=== PATIENT | female | born 1980 | race Caucasian/White ===

== ENCOUNTER 2021-03-24 08:48 | Outpatient (REF) | payer OTHER, SELFPAY ==
[2021-03-24 11:30] LABS: Hematocrit 45.7 % (37.0-47.0); Hemoglobin 15.5 g/dl (12.0-16.0); Mean Corpuscular HGB Conc 33.9 g/dl (31.0-35.0); Mean Corpuscular Hemoglobin 31.8 pg (27.0-33.0); Mean Corpuscular Volume 93.8 fL (80.0-98.0); Mean Platelet Volume 9.5 fL (9.4-12.3); Platelet Count 285 X10*3/uL (160-400); Red Blood Count 4.87 X10*6/uL (4.20-5.50); Red Cell Distribution Width 12.4 % (11.0-16.0); White Blood Count 11.3 X10*3/uL (4.8-10.8)
[2021-03-24 12:07] LABS: Alanine Aminotransferase 27 U/L (0-31); Albumin Level 4.5 g/dL (3.5-5.0); Alkaline Phosphatase 56 U/L (39-117); Anion Gap 11 (12-20); Aspartate Amino Transferase 24 U/L (5-31); Bilirubin Total 0.4 mg/dL (0.0-1.0); Blood Urea Nitrogen 10 mg/dL (9-16); Calcium 9.5 mg/dL (8.4-10.2); Carbon Dioxide 26 mmol/L (22-29); Chloride 106 mmol/L (96-108); Cholesterol 235 mg/dL; Estimated Glomerular Filt Rate > 60; Glucose Fasting 91 mg/dL (60-99); HDL Cholesterol 44 mg/dL; LDL Cholesterol Calculated 165 mg/dl; Potassium 4.8 mmol/L (3.3-5.1); Sodium 138 mmol/L (135-145); Total Protein 7.2 g/dL (6.5-8.0); Triglycerides 131 mg/dL
== END 2021-03-24 08:49 | disposition home or self-care (01) ==
LOC: HO.WFDLDS 08:48
PROVIDERS: Hospitalist; Visit Provider Family Medicine
DX: Z00.01 Encounter for general adult medical examination with abnormal findings (principal); I10 Essential (primary) hypertension; Z13.220 Encounter for screening for lipoid disorders; Z13.29 Encounter for screening for other suspected endocrine disorder
CPT/HCPCS: 36415; 80053; 80061; 84443; 85027

== ENCOUNTER 2021-12-24 07:00 | Outpatient (RCR) | payer OTHER, SELFPAY ==
[2021-11-23 07:02] VITALS: BP 140/80; PULSE 90; O2SAT 98
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
== END 2021-12-29 09:29 | disposition home or self-care (01) ==
LOC: HO.PTWFD 07:00
PROVIDERS: PCP Hospitalist; Visit Provider Family Medicine
DX: M54.12 Radiculopathy, cervical region (principal)
CPT/HCPCS: 97012; 97110; 97140; 97161; 97530; 97535

== ENCOUNTER 2023-09-02 13:48 | Outpatient (AMB) | payer OTHER, SELFPAY ==
[2023-09-02 14:05] VITALS: BP 120/76; PULSE 86; TEMP 36.6; O2SAT 97; BMI 46.5
--- NOTE | 2023-09-02 14:05 | AM.OFFWIN_ITS ---
Intake Vital Signs 09/02/23 14:05 Height 5 ft 4 in Weight 271 lb BMI 46.5 BP 120/76 Blood Pressure Location Lt brachial Position Sitting Pulse 86 Pulse Source Pulse Oximeter Temp 97.9 F Temp Source Temporal Artery Scan Pulse Oximetry (%) 97 Oxygen Delivery Method Room Air Intake Visit Reasons: EP Numbness/tingling/shock pain - whole body Intake Note: pt is here today numbness tingling shock pain started 08/15 Patient Tobacco Use Status: Current everyday Tobacco user Allergies nickel Allergy (Mild, Verified 09/02/23 14:11) Rash powder on gloves Allergy (Mild, Uncoded 09/02/23 14:11) rash Medication List - Last Reconciled 09/02/23 by Riana Laurent, PATRICK acetaminophen (Tylenol Extra Strength) 1,000 mg PO Q6H PRN albuterol sulfate 90 mcg/actuation 2 puffs inhalation Q6H PRN baclofen 10 mg PO TID PRN diclofenac sodium 1% (Voltaren Arthritis Pain) 4 grams topical QID 30 days ibuprofen 800 mg PO TID lactobacillus combination no.8 (Adult Probiotic) 3,000 mmu cells PO DAILY multivitamin 1 tab PO DAILY norethindrone (contraceptive) (Incassia) 0.35 mg PO DAILY ondansetron HCl (Zofran) 4 mg PO Q6H PRN 1 month pseudoephedrine HCl ER (Sudafed 12 Hour) 120 mg PO Q12H sumatriptan succinate 50 mg PO Q2-4H tramadol 50 mg PO Q8H PRN 3 days Do you need a note to return to daycare/school/sports/work: No HPI HPI Comments History of Present Illness Details Patient is a 43-year-old female complaining of whole body numbness tingling and shock-like pain x5 days as well as a headache. She states that on August 15 she was positive for urinary tract infection was placed on cephalexin for 7 days. She stopped taking this medication 5 days ago and states her symptoms started shortly after this. She says she feels off balance but denies any room spinning feeling. She has shooting pain in her right shoulder from her neck. She denies any fevers, nausea vomiting or diarrhea. She states her urinary symptoms have also resolved. [facility] Social History Housing: House Patient Tobacco Use Status: Current everyday Tobacco user Tobacco use type: Cigarette Cigarettes Per Day: 10 e-Cigarette/Vaping Use: Currently Using service: No Current occupational status: employed Cognitive needs: No Hearing needs: No Vision needs: No Review of Systems Const All systems reviewed & are unremarkable except as noted in HPI and below Physical Exam Vital Signs: Last Vital Signs Temp 97.9 F 09/02/23 14:05 Pulse 86 09/02/23 14:05 BP 120/76 09/02/23 14:05 Pulse Ox 97 09/02/23 14:05 Oxygen Delivery Method Room Air 09/02/23 14:05 BMI result Body Mass Index 46.5 Const General: cooperative, healthy appearing, comfortable and no acute distress Nutritional Appearance: well nourished Orientation/consciousness: patient oriented x3 Limitations: no limitations HEENT Ears: external ears normal, TM normal on the left, mastoids normal, hearing grossly not impaired and TM abnormal (right side) dull, wth effusion, erythematous, with fluid behind the TM and with loss of landmarks Face and sinus: Yes normal facial exam, Yes sinuses nontender and Yes face symmetric Mouth: Normal oral and palatal mucosa present and oropharynx normal Teeth and gingiva: dentition normal Throat: Yes posterior oropharynx normal Neck Neck: Yes normal visual inspection, Yes full ROM, Yes trachea midline and Yes supple Resp Effort & Inspection: normal respiratory effort Skin General skin exam: no rashes or lesions noted Neuro General: patient oriented x3 Assessment & Plan Assessment & Plan (1) Otitis media of right ear: Code(s): H66.91 - Otitis media, unspecified, right ear Qualifiers: Chronicity: acute Otitis media type: suppurative Recurrence: non- recurrent Spontaneous tympanic membrane rupture: without spontaneous rupture Qualified Code(s): H66.001 - Acute suppurative otitis media without spontaneous rupture of ear drum, right ear Plan: Most of her symptoms can be explained by the infection of the right ear, advised I am not sure what is happening with her hip and shoulder but she should follow up with her primary care doctor if those symptoms do not resolve. Explained prednisone and associated side effects, patient states she has familiar with the medication as she has taken it before. as I can not send prescriptions to [facility] due to technical issues, my colleague is sending them for me. Plan See above Medications: New prednisone tapered dose, take 1 tablet PO bid x 2 days, followed by 1 tab po qd x 2 days, followed by 1/2 tab po qd x 2 days. 20 mg PO DAILY 8 tabs 0RF H66.001 - Acute suppurative otitis media without spontaneous rupture of ear drum, right ear amoxicillin-pot clavulanate 875-125 mg 1 tab PO BID 14 tabs 0RF 7 days H66.91 - Otitis media, unspecified, right ear Coding Level of Care Code Est Pt Level 3 (66612) Diagnoses Non-recurrent acute suppurative otitis media of right ear without spontaneous rupture of tympanic membrane H66.001 Chronicity: acute Otitis media type: suppurative Recurrence: non-recurrent Spontaneous tympanic membrane rupture: without spontaneous rupture
== END 2023-09-02 14:52 | disposition home or self-care (01) ==
PROVIDERS: PCP Family Medicine; Visit Provider Physician Assistant
DX: H66.001 Acute suppurative otitis media without spontaneous rupture of ear drum, right ear (principal)
CPT/HCPCS: 99213

== ENCOUNTER 2024-03-31 09:50 | Outpatient (AMB) | payer OTHER, SELFPAY ==
--- NOTE | 2024-03-31 13:07 | MHC.OFFWIV ---
Intake Intake Visit Reasons: EP injured LT side of ankle Intake Note: Patient here for left foot pain that has been present for about 1 week after loosing her balance on a step stool and stepped back on her heel. Patient Tobacco Use Status: Current everyday Tobacco user Allergies nickel Allergy (Mild, Verified 04/13/24 07:59) Rash powder on gloves Allergy (Mild, Uncoded 03/31/24 13:16) rash Do you need a note to return to daycare/school/sports/work: No HPI EP injured LT side of ankle HPI Details Patient is a 44-year-old female comes to the walk-in clinic complaining of persistent left foot pain, especially with ambulating, for the last week after loosing her balance on a step stool and stepping back on her heel. Plain film x-ray was done today, and she was informed that heel spurs were visible, and that it is possible that there was a fracture to the enthesophyte, and there was suspicious lucency to the talus on my wet read, however no distinct avulsion or osseous trauma noted. She does have pinpoint tenderness to the superior lateral aspect of her calcaneus, however her Achilles reflex is intact and no palpable deformity or injury to the tendon. There is a low chance of an occult fracture, and further imaging might be warranted. Symptoms are aggravated with weight-bearing and ambulating however, and almost completely resolved with wearing a walking boot, so this was her the treatment modality that I advised today as she could not tolerate complete nonweightbearing with crutches. 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 The Achilles itself is intact, with intact reflex. No deformity, mass or obvious tear or rupture apparent. Full range of motion and good strength to the ankle and foot. Neurovascularly intact distally Results Reviewed Results Reviewed: Enthesophytes noted, with no clear avulsion fracture. However there is a suspicious looking lucency to the posterior talus, on my wet read, which might require further imaging. Pending radiologist read Assessment & Plan Assessment & Plan (1) Foot sprain: Code(s): S93.609A - Unspecified sprain of unspecified foot, initial encounter Qualifiers: Encounter type: initial encounter Laterality: left Qualified Code(s): S93.602A - Unspecified sprain of left foot, initial encounter Plan Patient is a 44-year-old female comes to the walk-in clinic Patient was informed that heel spurs were visible on plain film x-ray, and that it is possible that there was a fracture to the enthesophyte, and there was suspicious lucency to the talus on my wet read, however no distinct avulsion or osseous trauma noted. She does have pinpoint tenderness to the superior lateral aspect of her calcaneus, however her Achilles reflex is intact and no palpable deformity or injury to the tendon. There is a low chance of an occult fracture, as the mechanism of injury was not substantial, however further imaging might be warranted. Symptoms are aggravated with weight-bearing and ambulating however, and almost completely resolved with wearing a walking boot, so this was her the treatment modality that I advised today as she could not tolerate complete nonweightbearing with crutches. She will be referred to ortho for further evaluation if symptoms are persisting, and might be considered for further imaging at that point. In the meantime, she was advised to limit weight-bearing, however she did not tolerate double crutches, and therefore she can use the walking boot if absolutely needed. Orders: Orders XR foot LT min 3V 03/31/24 M79.673 - Pain in unspecified foot Referrals Orthopedics Referral M25.572 - Pain in left ankle and joints of left foot Coding Level of Care Code Est Pt Level 3 (67676) Diagnoses Sprain of left foot, initial encounter S93.602A Encounter type: initial encounter Laterality: left
== END 2024-03-31 14:44 | disposition home or self-care (01) ==
PROVIDERS: PCP Family Medicine; Visit Provider Physician Assistant Medical
DX: S93.602A Unspecified sprain of left foot, initial encounter (principal)

== ENCOUNTER 2024-03-31 13:24 | Outpatient (REF) | payer OTHER, SELFPAY ==
--- NOTE | ~2024-03-31 | XR_ITS ---
CLINICAL HISTORY: M79.673 - Pain in unspecified foot Three views of the left foot. COMPARISON: None FINDINGS: No ankle joint effusion. Calcaneal enthesophyte present. Small osteophytes present along the dorsal aspect of the talus. Normal tarsometatarsal alignment. Mild degenerative changes of the 1st MTP joint small osteophytes. Tarsals, metatarsals and phalanges appear intact. IMPRESSION: 1. No radiographic evidence of acute injury to the left foot. 2. Calcaneal enthesophyte. 3. Mild degenerative changes of the left foot most pronounced of the 1st MTP joint. This document has been electronically signed by: Dmitriy Fowler MD on 03/31/2024 14:05:20
== END 2024-03-31 13:25 | disposition home or self-care (01) ==
LOC: HO.HMGCX 13:24
PROVIDERS: PCP Family Medicine; Visit Provider Physician Assistant Medical
DX: M79.672 Pain in left foot (principal); M77.32 Calcaneal spur, left foot
CPT/HCPCS: 73630; 99212

== ENCOUNTER → 2024-03-31 13:28 | Outpatient (BNV) | payer OTHER, SELFPAY | PROVIDERS: PCP Family Medicine; Visit Provider Radiology Diagnostic Radiology | DX: M77.32 Calcaneal spur, left foot (principal) | CPT/HCPCS: 73630 ==

== ENCOUNTER 2024-04-13 07:15 | Outpatient (REF) | payer OTHER, SELFPAY ==
--- NOTE | ~2024-04-13 | XR_ITS ---
EXAMINATION: XR FOOT 3 OR MORE VIEWS LEFT HISTORY: M79.673 - Pain in unspecified foot COMPARISON: Comparison is made with the prior examination dated 03/31/2024. FINDINGS: Three views of the left foot are submitted. Osseous mineralization is normal. There is no fracture or dislocation. There is minimal joint space narrowing involving the 1st MTP joint. Again seen is calcification at the insertion of the Achilles tendon. XR/XR foot LT min 3V IMPRESSION: Minimal joint space narrowing of the MTP joint of the great toe. Electronically signed by: Gavin Rowell MD 04/13/2024 12:29 PM [facility]
== END 2024-04-13 07:16 | disposition home or self-care (01) ==
LOC: HO.HOSX 07:15
PROVIDERS: Visit Provider Physician Assistant
DX: M79.672 Pain in left foot (principal); M77.30 Calcaneal spur, unspecified foot
CPT/HCPCS: 73630; 99202

== ENCOUNTER 2024-04-13 07:44 | Outpatient (AMB) | payer OTHER, SELFPAY ==
--- NOTE | 2024-04-13 07:53 | MHC.OFFVIS ---
Vital Signs 04/13/24 08:03 Height 5 ft 4 in Weight 278 lb BMI 47.7 Handedness Right Intake Visit Reasons: New Pt - left ankle pain Intake Note: Vida is a 44 year old female who presents today with a tall walking boot for a evaluation of her left ankle pain, DOI 03/20/24. Patient reports she fell onto her left heel from a step ladder, persistent pain with weight-bearing and ambulating. She finds that the boot is helping her, however it is not getting better. Patient mentions through out the day her pain gets worse and she feels some numbness and tingling since the injury. *Hasn't been working since 03/30/24* Allergies nickel Allergy (Mild, Verified 04/13/24 07:59) Rash powder on gloves Allergy (Mild, Uncoded 03/31/24 13:16) rash HPI HPI New Pt - left ankle pain: Details: Ms. Hatfield is a 44-year-old female who presents to the office today for evaluation of a left foot injury that she sustained on 03/19/24. She reports that she was stepping off of a step stool backwards and her foot got caught and essentially stutter stepped backwards. She felt immediate left heel pain but kept ambulating through the pain. Following the injury, the pain continued to intensify prompting her to present to he urgent care walk in. X-rays were obtained and the patient was placed in a tall walking boot and instructed to followup with orthopedics outpatient for further evaluation and treatment. 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 Tenderness to palpation at the Achilles tendon attachment at the calcaneous. Additionally, the osteophyte is also palpable. Achilles tendon is palpable and intact. Negative [place]. Able to dorsiflex and platarflex, pronate and supinate. Sensation intact. Pedal pulse intact. Assessment & Plan Assessment & Plan (1) Calcaneal spur: Code(s): M77.30 - Calcaneal spur, unspecified foot Category: Medical Plan Ms. Hatfield is a 44-year-old female who presents to the office today for evaluation of a left foot injury that she sustained on 03/19/24. She reports that she was stepping off of a step stool backwards and her foot got caught and essentially stutter stepped backwards. She felt immediate left heel pain but kept ambulating through the pain. Following the injury, the pain continued to intensify prompting her to present to he urgent care walk in. X-rays were obtained and the patient was placed in a tall walking boot and instructed to followup with orthopedics outpatient for further evaluation and treatment. While in the office today, I discussed that the patient that she should remain in the tall walking boot WBAT. I will place an order for an MRI to evaluate the Achilles tendon and surrounding structures. 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 She will followup with me after MRI is obtained, sooner if needed. X-rays obtained in the office today were reviewed by me, Cielo Barrett PA-C and are negative for any acute fracture or dislocation. Orders: Orders XR foot LT min 3V Today M79.673 - Pain in unspecified foot MR foot LT wo con Today M77.30 - Calcaneal spur, unspecified foot, S90.32XA - Contusion of left foot, initial encounter Coding Level of Care Code New Pt Level 4 (98200) Diagnoses Calcaneal spur M77.30
[2024-04-13 08:03] VITALS: BMI 47.7
== END 2024-04-13 08:31 | disposition home or self-care (01) ==
PROVIDERS: PCP Family Medicine; Visit Provider Physician Assistant
DX: M77.30 Calcaneal spur, unspecified foot (principal)
CPT/HCPCS: 99204

== ENCOUNTER 2024-04-15 20:18 | Outpatient (REF) | payer OTHER, SELFPAY ==
--- NOTE | ~2024-04-15 | MR_ITS ---
EXAMINATION: MR FOOT WITHOUT IV CONTRAST LEFT HISTORY: M77.30 - Calcaneal spur, unspecified foot. TECHNIQUE: Sagittal and axial STIR images of the left hindfoot, and sagittal T1, coronal STIR, and axial T1 and STIR images of the left forefoot were obtained. COMPARISON: Correlation is made to plain films of the left foot dated 04/13/2024. FINDINGS: There is fraying of the Achilles tendon at its insertion on the calcaneus with adjacent soft tissue edema, consistent with a small tear. The remainder of the Achilles tendon is intact. There is no tendon retraction. There is trace fluid in the retrocalcaneal bursa. An os trigonum is noted. There is minimal increased T2 marrow signal intensity and surrounding soft tissue edema/fluid which can be seen in the setting of os trigonum syndrome. There is no significant tibiotalar joint effusion. There is marrow edema involving the medial sesamoid of the great toe. Bone marrow signal intensity is otherwise normal. The visualized tendons and ligaments are otherwise intact. MR/MR foot LT wo con IMPRESSION: 1. Findings consistent with a small tear at the insertion of the Achilles tendon. 2. Minimal bone marrow edema involving an os trigonum with surrounding edema/fluid which can be seen in the setting of os trigonum syndrome. 3. Bone marrow edema involving the medial sesamoid of the great toe can be seen in the setting of sesamoiditis or osteoarthritis. Electronically signed by: Gavin Rowell MD 04/17/2024 10:28 AM ISACC
== END 2024-04-15 20:19 | disposition home or self-care (01) ==
LOC: HO.MRI 20:18
PROVIDERS: PCP Family Medicine; Visit Provider Physician Assistant
DX: S90.32XA Contusion of left foot, initial encounter (principal); M77.32 Calcaneal spur, left foot
CPT/HCPCS: 73718

== ENCOUNTER → 2024-04-15 20:37 | Outpatient (BNV) | payer OTHER, SELFPAY | PROVIDERS: PCP Family Medicine; Visit Provider Radiology Diagnostic Radiology | DX: M89.9 Disorder of bone, unspecified (principal) | CPT/HCPCS: 73718 ==

== ENCOUNTER 2024-04-24 15:46 | Outpatient (AMB) | payer OTHER, SELFPAY ==
--- NOTE | 2024-04-24 16:16 | MHC.PC.OV ---
Vital Signs 04/24/24 16:22 Height 5 ft 4 in Weight 285 lb 6 oz BMI 49.0 BP 110/60 Blood Pressure Location Rt brachial Position Sitting Respiration 16 Pulse 79 Pulse Source Pulse Oximeter Temp 98.6 F Temp Source Oral Pulse Oximetry (%) 96 Oxygen Delivery Method Room Air Intake Visit Reasons: Annual PE Intake Note: annual pe Is last menstrual period known: Yes Last menstrual period: 04/11/24 Post menopausal: No Patient : No Allergies nickel Allergy (Mild, Verified 04/24/24 16:18) Rash powder on gloves Allergy (Mild, Uncoded 03/31/24 13:16) rash Tobacco use date assessed: 04/24/24 Dental Screening Dental Screen Date: 04/24/24 Did you have a dental visit in the last 12 months?: No Did you have a dental problem in the last 6 months where you did not have access to dental care?: No HPI Annual PE HPI Details 44 y/o female presents for a CPE with f/u labs and health maintenance. No recent labs to review. Has not had her colonoscopy yet. Has complaints of abd. discomfort, diarrhea. She notes she hydrates herself well. She uses a fiber supplement that she notes is similar to metamucil. She notes some fatigue. 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 1. Little interest or pleasure in doing things: several days 2. Feeling down, depressed, or hopeless: several days 3. Trouble falling or staying asleep, or sleeping too much: several days 4. Feeling tired or having little energy: several days 5. Poor appetite or overeating: several days 6. Feeling bad about yourself - or that you are a failure or have let yourself or your family down: not at all 7. Trouble concentrating on things, such as reading the newspaper or watching television: several days 8. Moving or speaking so slowly that other people could have noticed. Or the opposite - being so fidgety or restless that you have been moving around a lot more than usual: several days 9. Thoughts that you would be better off or of hurting yourself in some way: not at all Total score: 7 Source: Developed by Drs. Gavin Hoskins, Beulah Dunn, Umang Mcarthur and colleagues, with an educational tony from [employer] Thrive Questionnaire Date Thrive assessed: 04/24/24 I am a: Patient What is your living situation today?: I have a steady place to live Within the past 12 months, did the food you bought not last and you didn't have the money to get more?: I choose not to answer this question Within the past 12 months, did you worry whether your food would run out before you got money to buy more?: I choose not to answer this question Do you have trouble paying for medicines?: No Do you have trouble getting transportation to medical appointments?: No Do you have trouble paying your heating and electricity bill?: No Do you have trouble taking care of your child, family member or friend?: No Do you have trouble with day-to-day activities such as bathing, preparing meals, shopping, managing finances, etc.?: No Are you currently unemployed and looking for a job?: No Are you interested in more education?: Yes Please select the resources that you would like help with: Education Currently or been in a relationship where the following occur: I choose not to answer THRIVE Score: 0 AUDIT C Alcohol Use Questionnaire (AUDIT-C) 1. How often do you have a drink containing alcohol?: Monthly or less 2. How many drinks containing alcohol do you have on a typical day when you are drinking?: 1 or 2 3. How often do you have six or more drinks on one occasion?: Never Total Score: 1 NATTY-7 AMB Questionnaire NATTY-7 Date NATTY - 7 assessed: 04/24/24 Feeling nervous, anxious, or on edge: 1 = Several days Not being able to stop or control worryin = Several days Worrying too much about different things: 1 = Several days Trouble relaxin = Several days Being so restless that it is hard to sit still: 1 = Several days Becoming easily annoyed or irritable: 1 = Several days Feeling afraid as if something awful might happen: 1 = Several days Total NATTY-7 score (0-4 normal; 5-9 mild; 10-14 moderate; 15-21 severe): 7 Source: Developed by Drs. Gavin Hoskins, Beulah Dunn, Umang Mcarthur and colleagues, with an educational tony from [employer] Review of Systems Const Denies chills, Denies fatigue, Denies fever(s), Denies headache(s) and Denies weakness Eyes Denies change in vision ENT Denies dizziness, Denies headache(s), Denies hearing loss, Denies nasal congestion, Denies sinus pain, Denies sinus pressure and Denies sore throat Card Denies chest pain, Denies lightheadedness, Denies dyspnea and Denies other (palpitations) Resp Denies cough, Denies dyspnea and Denies wheezing GI Denies abdominal pain, Denies melena, Denies hematochezia, Denies change in bowel habits, Denies dyspepsia, Reports diarrhea and Denies nausea Denies hematuria and Denies dysuria Musc Denies abnormal gait, Denies myalgias, Denies arthralgias, Denies numbness and Denies tingling Skin/Breast Denies rash, Denies unusual bruising and Denies wounds Neuro Denies abnormal gait, Denies dizziness, Denies headache(s), Denies memory loss, Denies numbness, Denies Sensory deficit (Neuro), Denies tingling and Denies weakness Psych Denies anxiety, Denies depression and Denies memory loss Endo Denies cold intolerance, Denies fatigue, Denies heat intolerance, Denies polydipsia and Denies polyuria Gianni/Lymph Denies easy bleeding and Denies easy bruising Aller/Immun Denies wheezing Physical exam (Primary Care) Vital Signs: Last Vital Signs Temp 98.6 F 04/24/24 16:22 Pulse 79 04/24/24 16:22 Resp 16 04/24/24 16:22 BP 110/60 04/24/24 16:22 Pulse Ox 96 04/24/24 16:22 Oxygen Delivery Method Room Air 04/24/24 16:22 BMI result Body Mass Index 49.0 Tobacco/Smoking Status: Tobacco use Status Tobacco use date assessed 04/24/24 04/24/24 16:27 Patient Tobacco Use Status Current everyday Tobacco 04/24/24 16:27 Tobacco use type Cigarette 04/24/24 16:27 e-Cigarette/Vaping Use Currently Using 04/24/24 16:27 PHQ-9: PHQ-9 Score PHQ-9: Total score 7 04/24/24 16:27 Thrive Assessment: Date of Thrive Assessment Date Thrive assessed 04/24/24 04/24/24 16:27 Currently or been in a relationship where the following occur: I choose not to answer Const General: no acute distress, well developed, alert and awake Nutritional Appearance: well nourished Orientation/consciousness: patient oriented x3 HENMT Head: Yes normocephalic and Yes atraumatic Ears: hearing grossly normal bilaterally and TM's normal bilaterally General nose exam: Normal external nose present and Normal nares present Mouth: Normal oral and palatal mucosa present and moist mucous membranes Teeth and gingiva: dentition normal Throat: Yes posterior oropharynx normal Eyes General: appearance normal, both eyes and all related structures Pupils: Equal, round and reactive pupils present and Pupil accommodation reflex normal EOM: EOMs intact bilaterally Neck Neck: Yes normal visual inspection, Yes no lymphadenopathy and Yes trachea midline Thyroid: Thyroid normal Carotids: no bruits Lymphatic: no lymphadenopathy noted Chest Chest palpation & inspection: normal inspection of the chest Resp Effort & Inspection: normal respiratory effort Auscultation: clear to auscultation bilaterally Cardio Rate: regular rate Rhythm: regular rhythm Heart sounds: S1 normal heart sound present, S2 normal heart sound present, no gallops, no murmurs and no rubs Bruits: no abdominal aortic bruits and no carotid bruits GI Palpation (GI): No Abdominal aortic bruit present, Soft to palpation, nontender, No hepatosplenomegaly present and No Rebound tenderness present Auscultation: normal bowel sounds General: Yes no CVA tenderness Back/Spine/Pelvis Back: no CVA tenderness Cervical Spine: cervical ROM normal and No Cervical spine tenderness Thoracic/Lumbar Spine: thoraco-lumbar ROM normal, No pain with thoraco-lumbar ROM, No thoracic spinal tenderness and No lumbar spinal tenderness Skin Lesions: no lesions Rashes: no rashes Trauma: no lacerations or abrasions Wounds: no wounds Nails: normal Neuro General: patient oriented x3 Cranial nerves: Yes Equal, round and reactive pupils present Cognition (Neuro): normal cognition Gait exam (Neuro): Normal gait present Motor exam (neuro): 5/5 motor strength present throughout Sensory Exam: No Sensory deficit (Neuro) Deep tendon reflexes (DTR's): Right patellar reflex intensity grade: 2+ and Left patellar reflex intensity grade: 2+ Extrem General: Yes normal to inspection and No edema Psych Appearance: grossly normal Affect: normal affect Attitude: cooperative Thought process: Normal thought process present Coding Level of Care Code Est Pt Level 3 (95483) Est Pt Prev Care 40-64y(78956) Diagnoses Adult general medical exam Z00.00 Diarrhea R19.7 Fatigue R53.83 Screening for colon cancer Z12.11 Breast cancer screening by mammogram Z12.31 Screening for cervical cancer Z12.4 Assessment & Plan Assessment & Plan (1) Adult general medical exam: Code(s): Z00.00 - Encounter for general adult medical examination without abnormal findings Category: Medical Plan: 44-year-old?female?presents?for?complete?physical?exam Encouraged?healthy?diet?with?active?lifestyle?and?plenty?of?exercise (2) Diarrhea: Code(s): R19.7 - Diarrhea, unspecified Category: Medical Plan: Patient?has?diarrhea?alternating With?some?constipation Of?note,?she?has?been?taking?iron?supplements?as?she?has?been?concerned?that?she?may?be?anemic Will?look?in?to?her?H&H?as?well?as?iron?levels?to?see?if?this?is?needed - otherwise?can?discontinue Hydrate?well Consider?a?soluble?fiber?tablet She?will?let?me?know?if?still?not?improving. (3) Fatigue: Code(s): R53.83 - Other fatigue Category: Medical Plan: As?above,?check?CBC?as?well?as?iron?levels Check?thyroid?level Will?follow-up?in?next?encounter (4) Screening for colon cancer: Code(s): Z12.11 - Encounter for screening for malignant neoplasm of colon Category: Medical Plan: Patient?is?44?and?due?for?1st?screening?colonoscopy Referred?to?GI (5) Breast cancer screening by mammogram: Code(s): Z12.31 - Encounter for screening mammogram for malignant neoplasm of breast Category: Medical Plan: Due?for?mammogram Ordered (6) Screening for cervical cancer: Code(s): Z12.4 - Encounter for screening for malignant neoplasm of cervix Category: Medical Plan: Due?for Pap?smear 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 Panel Fast Today Z00.00 - Encounter for general adult medical examination without abnormal findings LDL Cholesterol Direct Today E78.5 - Hyperlipidemia, unspecified Lipid Panel Today Z00.00 - Encounter for general adult medical examination without abnormal findings TSH reflex Free T4 Today Z00.00 - Encounter for general adult medical examination without abnormal findings UA and rflx microscopic Today Z00.00 - Encounter for general adult medical examination without abnormal findings MM tomosynthesis screening BI Today Z12.31 - Encounter for screening mammogram for malignant neoplasm of breast IRON PROFILE Today R53.83 - Other fatigue Referrals Gastroenterology Referral Z12.11 - Encounter for screening for malignant neoplasm of colon BASKET OPERATOR Referral Z12.4 - Encounter for screening for malignant neoplasm of cervix
[2024-04-24 16:22] VITALS: BP 110/60; PULSE 79; RESP 16; TEMP 37; O2SAT 96; BMI 49.0
--- OUTSIDE RECORDS SUMMARY | 2024-04-24 16:30 | XMS_ITS | Clinical Summary ---
Author Organization [facility] ity Address [address] [place] [address] Care Team Providers Care [employer] Advisor Name Role Phone Unavailable Primary Care Provider Unavailabl e Surgical History Surgery Date Site/Laterality Comments OTHER SURGICAL HISTORY PROCEDURE: DENIES PREVIOUS SURGERY Medical History Medical History Date Comments Tobacco use disorder 03/20/2006 DX:Tobacco use disorder Family History Medical History Relation Name Comments Alcohol abuse Father Other: substance abuse Mother Blindness Neg Hx Cataracts Neg Hx Glaucoma Neg Hx Macular degeneration Neg Hx Strabismus Neg Hx Relation Name Status Comments Father Mother Social History Tobacco Use Types Packs/Day Years Used Date Smoking Tobacco: Every Day Cigarettes Alcohol Use Standard Drinks/Week Comments Yes 0 (1 standard drink = 0.6 oz pur e alcohol) Sex and Gender Information Value Date Recorded Sex Assigned at Not on file Gender Identity Not on file Sexual Orientation Not on file Obstetrics History Plan of Treatment Health Maintenance Due Date Last Done Comments Breast Cancer Screening 1979 DTaP,Tdap,and Td Vaccines (1 - Tdap) 1998 Hepatitis B Vaccines (1 of 3 - 19+ 3-dose series) 1998 Cervical Cancer Screening: P ap Smear 01/15/2000 COVID-19 Vaccine ( - 2023-2 5 season) 2023 Influenza Vaccine (#1) 2023 HIB Vaccines Aged Out No longer eligi ble based on patient's age to complete this topic HPV Vaccines Aged Out No longer eligi ble based on patient's age to complete this topic Hepatitis A Vaccines Aged Out No long er eligible based on patient's age to complete this topic IPV Vaccines Aged Out No longer eligi ble based on patient's age to complete this topic MMR Vaccines Aged Out No longer eligi ble based on patient's age to complete this topic Meningococcal ACWY Vaccine Aged Out N o longer eligible based on patient's age to complete this topic Pneumococcal Vaccine: Pediat rics (0 to 5 Years) and At-Risk Patients (6 to 64 Years) Aged Out No longer eligible b ased on patient's age to complete this topic RSV Immunization Patients Un kayla 20 months Aged Out No longer eligible b ased on patient's age to complete this topic Varicella Vaccines Aged Out No longer eligible based on patient's age to complete this topic
--- OUTSIDE RECORDS SUMMARY | 2024-04-24 16:30 | XMS_ITS | Patient Health Record ---
Author Organization [facility] Address [facility] [id number] Support Name Relationship Address Phone Unavailable Emergency Contact Unknown Vida Hatfield Guarantor Unknown Unavailable Reason For Referral No Information Problems Problem Type SNOMED Code ICD Code Onset Dates Problem Status W/U Status Risk Notes Problem Mixed hyperlipidemia (996151454) Mixed hyperlipidemia (272.2) Active confirmed (NISH) Problem Tobacco user (451427257) Nondependent tobacco use disorder (305.1) Active confirmed (NISH) Plan Of Treatment No Information Medical (General) History Surgical History Surgery Date(Month/Year) no surgical history : 10/25/2013 - ;
== END 2024-04-24 17:05 | disposition home or self-care (01) ==
PROVIDERS: PCP Family Medicine; Visit Provider Family Medicine
DX: Z00.00 Encounter for general adult medical examination without abnormal findings (principal); R19.7 Diarrhea, unspecified; R53.83 Other fatigue; Z12.11 Encounter for screening for malignant neoplasm of colon; Z12.31 Encounter for screening mammogram for malignant neoplasm of breast

== ENCOUNTER → 2024-04-24 15:46 | Outpatient (BNVA) | payer OTHER, SELFPAY | PROVIDERS: PCP Family Medicine; Visit Provider Family Medicine | DX: Z00.00 Encounter for general adult medical examination without abnormal findings (principal); R19.7 Diarrhea, unspecified; R53.83 Other fatigue; F17.210 Nicotine dependence, cigarettes, uncomplicated; Z12.4 Encounter for screening for malignant neoplasm of cervix | CPT/HCPCS: 99212; 99396 ==

== ENCOUNTER 2024-04-27 09:58 | Outpatient (REF) | payer OTHER, SELFPAY ==
--- OUTSIDE RECORDS SUMMARY | 2024-04-27 10:40 | XMS_ITS | Clinical Summary ---
Author Organization [facility] ity Address [address] [place] [address] Care Team Providers Care Sewer Hand Name Role Phone Unavailable Primary Care Provider [...]
[2024-04-27 11:47] LABS: Appearance Urine Clear; Color Urine Yellow; Glucose Urine UA Negative (Negative); Leukocyte Esterase Urine Negative (Negative); Nitrite Urine Negative (Negative); PH 6.5 (5.0-9.0); Specific Gravity - Urine 1.015 (1.005-1.025); UMIC TRIGGER UA YES; Urine Blood Small (1+) (Negative); Urine Ketones Negative (Negative); Urine Protein Negative (Neg-Trace)
[2024-04-27 11:53] LABS: Bacteria Urine None Seen (None Seen); Hyaline Casts Urine 0-2 /LPF (0-2); WBC Urine 0-5 /HPF (0-5)
[2024-04-27 12:20] LABS: MANUAL DIFF FLAG NO
[2024-04-27 12:28] LABS: Creatinine Urine 65.12 mg/dL; Microalbumin Urine < 5.0 mg/L
[2024-04-27 12:35] LABS: Basophils Absolute Auto 0.1 X10*3/uL (0.0-0.2); Basophils Percent Auto 0.8 % (0-2); Eosinophils Absolute Auto 0.1 X10*3/uL (0.0-0.4); Hematocrit 44.9 % (37.0-47.0); Hemoglobin 15.3 g/dl (12.0-16.0); Imm Gran Abs Auto 0.02 X10*3/uL (0.00-0.03); Imm Gran Pct Auto 0.3 % (0.0-0.4); Lymphocytes Absolute Auto 3.1 X10*3/uL (1.2-4.9); Lymphocytes Percent Auto 38.4 % (20-40); Mean Corpuscular HGB Conc 34.1 g/dl (31.0-35.0); Mean Corpuscular Hemoglobin 30.6 pg (27.0-33.0); Mean Corpuscular Volume 89.8 fL (80.0-98.0); Mean Platelet Volume 9.8 fL (9.4-12.3); Monocytes Absolute Auto 0.7 X10*3/uL (0.1-1.2); Monocytes Percent Auto 8.4 % (2-11); Neutrophils Absolute Auto 4.1 x10*3/uL (2.0-8.3); Neutrophils Percent Auto 51.1 % (45-73); Platelet Count 295 X10*3/uL (160-400); Red Cell Distribution Width 12.3 % (11.0-16.0)
[2024-04-27 13:08] LABS: Alanine Aminotransferase 31 U/L (0-31); Albumin Level 4.3 g/dL (3.5-5.0); Alkaline Phosphatase 59 U/L (39-117); Anion Gap 11 (12-20); Aspartate Amino Transferase 34 U/L (5-31); Bilirubin Total 0.5 mg/dL (0.0-1.0); Blood Urea Nitrogen 13 mg/dL (9-16); Calcium 9.4 mg/dL (8.4-10.2); Carbon Dioxide 23 mmol/L (22-29); Chloride 108 mmol/L (96-108); Cholesterol 240 mg/dL (<200); Estimated Glomerular Filt Rate > 60; Glucose Fasting 89 mg/dL (60-99); HDL Cholesterol 42 mg/dL (>40); Iron 131 mcg/dL (30-160); LDL Cholesterol Calculated 164 mg/dL (<100); Percent Iron Saturation 43 % (15-50); Potassium 4.4 mmol/L (3.3-5.1); Sodium 138 mmol/L (135-145); Total Iron Binding Capacity 305 mcg/dL (228-428); Total Protein 7.5 g/dL (6.5-8.0); Triglycerides 171 mg/dL (<150); Unsaturated Iron Binding 174 ug/dL
[2024-04-27 13:33] LABS: TSH reflex Free T4 1.04 uIU/mL (0.32-4.0)
[2024-04-29 03:19] LABS: LDL Cholesterol Direct 186 mg/dL (<100)
== END 2024-04-27 09:59 | disposition home or self-care (01) ==
LOC: HO.WFDLDS 09:58
PROVIDERS: Visit Provider Family Medicine
DX: Z00.00 Encounter for general adult medical examination without abnormal findings (principal); E78.5 Hyperlipidemia, unspecified; R53.83 Other fatigue; I10 Essential (primary) hypertension
CPT/HCPCS: 36415; 80053; 80061; 81001; 82043; 82570; 83540; 83721; 84443; 85025

== ENCOUNTER 2024-05-17 12:47 | Outpatient (AMB) | payer OTHER, SELFPAY ==
--- NOTE | 2024-05-17 12:58 | MHC.OFFVIS ---
Intake Visit Reasons: OV - left ankle MRI review Intake Note: Vida is a 44 year old female who presents today for a MRI review of her left ankle. MRI done 04/15/24. Patient states she started PT and has attended 3 sessions. She has concerns of tenderness at her heel. She continues to wear walking boot as instructed. Allergies nickel Allergy (Mild, Verified 05/17/24 13:04) Rash powder on gloves Allergy (Mild, Uncoded 05/17/24 13:04) rash HPI HPI OV - left ankle MRI review: Details: Ms. Jordan is a 44-year-old female who presents to the office today for routine follow-up of a left ankle injury. The patient was called over the phone with the MRI results prior to this appointment. Patient has been attending physical therapy and wearing the boot as instructed. 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 No tenderness to palpation at the Achilles tendon attachment at the calcaneous. Additionally, the osteophyte is also palpable over the posterior aspect of the calcaneus. Achilles tendon is palpable and intact. Negative [place]. Able to dorsiflex and platarflex, pronate and supinate. Sensation intact. Pedal pulse intact. Assessment & Plan Assessment & Plan (1) Partial rupture of left Achilles tendon: Code(s): S86.012A - Strain of left Achilles tendon, initial encounter Category: Medical (2) Calcaneal spur: Code(s): M77.30 - Calcaneal spur, unspecified foot Category: Medical Plan Ms. Jordan is a 44-year-old female who presents to the office today for routine follow-up of a left ankle injury. The patient was called over the phone with the MRI results prior to this appointment. Patient has been attending physical therapy and wearing the boot as instructed. While in the office today, we discussed discontinuing the tall boot and transitioning to a supportive walking shoe. Patient will continue attending physical therapy. She will remain out of work until her follow-up. I would like to see her in 6 weeks, sooner if needed. MRI foot LT wo con IMPRESSION: 1. Findings consistent with a small tear at the insertion of the Achilles tendon. 2. Minimal bone marrow edema involving an os trigonum with surrounding edema/fluid which can be seen in the setting of os trigonum syndrome. 3. Bone marrow edema involving the medial sesamoid of the great toe can be seen in the setting of sesamoiditis or osteoarthritis. Coding Level of Care Code Est Pt Level 3 (77000) Diagnoses Partial rupture of left Achilles tendon S86.012A Calcaneal spur M77.30
--- OUTSIDE RECORDS SUMMARY | 2024-05-17 13:40 | XMS_ITS | Clinical Summary ---
Author Organization [facility] ity Address [address] [place] [address] Care Team Providers Care Field Coil Winder Name Role Phone Unavailable Primary Care Provider [...] drink = 0.6 oz pur e alcohol) Comments Unknown Sex and Gender Information Value Date Recorded Sex Assigned at Not on file Legal Sex Female 11:05 PM EST Gender Identity Not on file Sexual Orientation Not on file Obstetrics History Plan of Treatment Health Maintenance Due Date Last Done Comments Breast Cancer Screening 1979 DTaP,Tdap,and Td Vaccines (1 - Tdap) 1998 Hepatitis B Vaccines (1 of 3 - 19+ 3-dose series) 1998 Cervical Cancer Screening: P ap Smear 01/15/2000 COVID-19 Vaccine (2023-2 5 season) 2023 Influenza Vaccine (#1) 2023 [...] patient's age to complete this topic Meningococcal B Vacine Aged Out No lo nger eligible based on patient's age to complete [...]
--- OUTSIDE RECORDS SUMMARY | 2024-05-17 13:40 | XMS_ITS | Patient Health Record ---
Author Organization [facility] Address [facility] [phone] Support Name Relationship Address Phone Unavailable Emergency Contact Unknown Vida Hatfield Guarantor Unknown Unavailable Reason For Referral No Information Problems Problem Type SNOMED Code ICD Code Onset Dates Problem Status W/U Status Risk Notes Problem Mixed hyperlipidemia (451928672) Mixed hyperlipidemia (272.2) Active confirmed (NISH) Problem Tobacco user (900102478) Nondependent tobacco use disorder (305.1) Active confirmed (NISH) Plan Of Treatment No Information Medical (General) History Surgical History Surgery Date(Month/Year) no surgical history : 10/25/2013 - ;
== END 2024-05-17 13:38 | disposition home or self-care (01) ==
PROVIDERS: PCP Family Medicine; Visit Provider Physician Assistant
DX: S86.012D Strain of left Achilles tendon, subsequent encounter (principal); M77.30 Calcaneal spur, unspecified foot
CPT/HCPCS: 99213

== ENCOUNTER → 2024-05-17 12:47 | Outpatient (BNVA) | payer OTHER, SELFPAY | PROVIDERS: PCP Family Medicine; Visit Provider Physician Assistant | DX: S86.012D Strain of left Achilles tendon, subsequent encounter (principal); M77.30 Calcaneal spur, unspecified foot | CPT/HCPCS: 99212 ==

== ENCOUNTER 2024-05-24 11:36 | Outpatient (AMB) | payer OTHER, SELFPAY ==
--- NOTE | 2024-05-24 11:33 | MHC.PC.OV ---
Intake Visit Reasons: f/u CPE-labs via telemedicine Allergies nickel Allergy (Mild, Verified 05/24/24 11:33) Rash powder on gloves Allergy (Mild, Uncoded 05/17/24 13:04) rash Medication List - Last Reconciled 05/24/24 by Josias Webber MD acetaminophen (Tylenol Extra Strength) 1,000 mg PO Q6H PRN albuterol sulfate 90 mcg/actuation 2 puffs inhalation Q6H PRN atorvastatin 20 mg PO BEDTIME 90 days bupropion HCl XL (Wellbutrin XL) 150 mg PO QAM diclofenac sodium 1% (Voltaren Arthritis Pain) 4 grams topical QID 30 days ibuprofen 800 mg PO TID lactobacillus combination no.8 (Adult Probiotic) 3,000 mmu cells PO DAILY multivitamin 1 tab PO DAILY ondansetron HCl (Zofran) 4 mg PO Q6H PRN 1 month sumatriptan succinate 50 mg PO Q2-4H Tobacco use date assessed: 04/24/24 Dental Screening Dental Screen Date: 04/24/24 HPI f/u CPE-labs via telemedicine HPI Details 44 y/o female presents to f/u CPE-labs via telemedicine. Labs drawn 04/27/24. Reviewed labs with pt. Elevated AST of 34. Triglycerides 171. TC 240. LDL direct 186. HDL 42. Some urine RBC seen. Pt notes this is chronic though she is unsure why. HPI Comments History of Present Illness Details Documentation assistance for Josias Webber MD, was provided by Marlon Malloy,? Rotary Engraver on 05/24/2024 at 2:30 PM EST. I, Dr. Webber, have read, observed, and verified documentation. ?? 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 Gavin Hoskins, Beulah Dunn, Umang Mcarthur and colleagues, with an educational tony from [employer]. Review of Systems Const Denies chills, Denies fatigue, Denies fever(s), Denies headache(s) and Denies weakness ENT Denies dizziness and Denies headache(s) Card Denies dyspnea Resp Denies cough, Denies dyspnea, Denies wheezing and Denies other (shortness of breath) Musc Denies numbness and Denies tingling Neuro Denies dizziness, Denies headache(s), Denies numbness, Denies tingling and Denies weakness Psych Denies anxiety and Denies depression Endo Denies fatigue Aller/Immun Denies wheezing Physical exam (Primary Care) Tobacco/Smoking Status: Tobacco use Status Tobacco use date assessed 04/24/24 05/24/24 11:35 Patient Tobacco Use Status Current everyday Tobacco 05/24/24 11:35 Tobacco use type Cigarette 05/24/24 11:35 e-Cigarette/Vaping Use Currently Using 05/24/24 11:35 Thrive Assessment: Date of Thrive Assessment Date Thrive assessed 04/23/24 05/24/24 11:35 Telehealth Telehealth Telehealth Platform: Telephone Location of provider rendering services: practice address Location of patient: address on file Patient Identification confirmed using: Name, : Yes Telehealth method: voice only Patient verbally consented to treatment: Yes Patient verbally consented to billing insurance company: Yes Patient informed of any privacy concerns related to visit: Yes Minutes spent on Phone/Video with Pt.: 20 Coding Level of Care Code Tele Est Pt Level 3 (95100) Diagnoses Elevated AST (SGOT) R74.01 Hypercholesterolemia E78.00 Hematuria R31.9 Assessment & Plan Assessment & Plan (1) Elevated AST (SGOT): Code(s): R74.01 - Elevation of levels of liver transaminase levels Category: Medical Plan: Mildly?elevated?AST Will?have?patient?hydrate?well?and?work?at?weight?loss Will?recheck?in?a?few?months (2) Hypercholesterolemia: Code(s): E78.00 - Pure hypercholesterolemia, unspecified Category: Medical Plan: LDL?cholesterol?is?too?high.??Goal?is?less?than?100 Work?on?diet?lower?in?saturated?fats?and?cholesterol Start?atorvastatin Work?on?weight?loss?and?exercise (3) Hematuria: Code(s): R31.9 - Hematuria, unspecified Category: Medical Plan: Patient?has?mild?microscopic?hematuria?and?notes?that?she?has?had?this?many?times?before No?significant?workup Will?recheck?this?and?if?if?persists,?will?work?further Orders: Orders Comprehensive [place]. Panel Fast Today R74.01 - Elevation of levels of liver transaminase levels, Z00.00 - Encounter for general adult medical examination without abnormal findings UA and rflx microscopic Today R31.9 - Hematuria, unspecified, Z00.00 - Encounter for general adult medical examination without abnormal findings Lipid Panel Today E78.00 - Pure hypercholesterolemia, unspecified, Z00.00 - Encounter for general adult medical examination without abnormal findings Medications: New atorvastatin 20 mg PO BEDTIME 90 days 90 tabs 2RF
--- OUTSIDE RECORDS SUMMARY | 2024-05-24 14:07 | XMS_ITS | Clinical Summary ---
Author Organization [facility] ity Address [address] [place] [address] Care Team Providers Care Workers' Compensation Magistrate Name Role Phone Unavailable Primary Care Provider [...]
--- OUTSIDE RECORDS SUMMARY | 2024-05-24 14:07 | XMS_ITS | Patient Health Record ---
Author Organization [facility] Address [facility] [phone] Support Name Relationship Address Phone Unavailable Emergency Contact Unknown Vida Hatfield Guarantor Unknown Unavailable Reason For Referral No Information Problems Problem Type SNOMED Code ICD Code Onset Dates Problem Status W/U Status Risk Notes Problem Mixed hyperlipidemia (524119310) Mixed hyperlipidemia (272.2) Active confirmed (NISH) Problem Tobacco user (360205957) Nondependent tobacco use disorder (305.1) Active confirmed (NISH) Plan Of Treatment No Information Medical (General) History Surgical History Surgery Date(Month/Year) no surgical history : 10/25/2013 - ;
== END 2024-05-24 17:05 | disposition home or self-care (01) ==
LOC: HO.HMCFM 11:36
PROVIDERS: PCP Family Medicine; Visit Provider Family Medicine
DX: R74.01 Elevation of levels of liver transaminase levels (principal); E78.00 Pure hypercholesterolemia, unspecified; R31.9 Hematuria, unspecified

== ENCOUNTER 2024-06-01 13:23 | Outpatient (REF) | payer OTHER, SELFPAY ==
--- OUTSIDE RECORDS SUMMARY | 2024-06-01 15:02 | XMS_ITS | Patient Health Record ---
Author Organization [facility] Address [facility] [phone] Support Name Relationship Address Phone Unavailable Emergency Contact Unknown Vida Hatfield Guarantor Unknown Unavailable Reason For Referral No Information Problems Problem Type SNOMED Code ICD Code Onset Dates Problem Status W/U Status Risk Notes Problem Mixed hyperlipidemia (034474102) Mixed hyperlipidemia (272.2) Active confirmed (NISH) Problem Tobacco user (906640159) Nondependent tobacco use disorder (305.1) Active confirmed (NISH) Plan Of Treatment No Information Medical (General) History Surgical History Surgery Date(Month/Year) no surgical history : 10/25/2013 - ;
--- OUTSIDE RECORDS SUMMARY | 2024-06-01 15:02 | XMS_ITS | Clinical Summary ---
Author Organization [facility] ity Address [address] [place] [address] Care Team Providers Care Modeling Director Name Role Phone Unavailable Primary Care Provider [...]
== END 2024-06-01 13:24 | disposition home or self-care (01) ==
LOC: HO.MAMMO 13:23
PROVIDERS: PCP Family Medicine; Visit Provider Family Medicine
DX: Z12.31 Encounter for screening mammogram for malignant neoplasm of breast (principal)
CPT/HCPCS: 77063; 77067

== ENCOUNTER → 2024-06-01 13:30 | Outpatient (BNV) | payer OTHER, SELFPAY | PROVIDERS: PCP Family Medicine; Visit Provider Internal Medicine | DX: Z12.31 Encounter for screening mammogram for malignant neoplasm of breast (principal) | CPT/HCPCS: 77063; 77067 ==

== ENCOUNTER 2024-06-29 12:39 | Outpatient (AMB) | payer OTHER, SELFPAY ==
--- NOTE | 2024-06-29 12:50 | A.OFFVIS_ITS ---
Vital Signs 06/29/24 13:03 Height 5 ft 4 in Weight 285 lb BMI 48.9 Intake Visit Reasons: OV-left ankle, follow up Intake Note: Vida is a 44 year old female who presents today with her aunt for a follow up of her left ankle. MRI done 04/15/24. She mentions she is having improvements and getting better. Patient also states when is super active she gets pain flair ups where her pain radiates up to her calf. She states that her pain is worse when going up the stairs. Patrient is still going to PT with improvements but she gets very sore after. Allergies nickel Allergy (Mild, Verified 06/29/24 13:03) Rash powder on gloves Allergy (Mild, Uncoded 05/17/24 13:04) rash HPI HPI OV-left ankle, follow up: Details: Patient presents the office today for routine follow-up status post partial rupture of the left Achilles tendon that she sustained on 03/20/2024. She is ambulating without the use of a boot and continue to attend physical therapy. She is requesting to return back to work at this time. 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 No tenderness to palpation at the Achilles tendon attachment at the calcaneous. Additionally, the osteophyte is also palpable over the posterior aspect of the calcaneus. Achilles tendon is palpable and intact. Negative [place]. Able to dorsiflex and platarflex, pronate and supinate. Sensation intact. Pedal pulse intact. Assessment & Plan Assessment & Plan (1) Calcaneal spur: Code(s): M77.30 - Calcaneal spur, unspecified foot Category: Medical (2) Partial rupture of left Achilles tendon: Code(s): S86.012A - Strain of left Achilles tendon, initial encounter Category: Medical Plan Patient presents the office today for routine follow-up status post partial rupture of the left Achilles tendon that she sustained on 03/20/2024. She is ambulating without the use of a boot and continue to attend physical therapy. She is requesting to return back to work at this time. On the office today, we discussed her continuation of physical therapy. She would like to return to work on 07/09/2024 for full-time regular duty in which it was provided to her in the office today. She will follow-up in 4 weeks, sooner if needed. Coding Level of Care Code Est Pt Level 3 (62624) Diagnoses Calcaneal spur M77.30 Partial rupture of left Achilles tendon S86.012A
[2024-06-29 13:03] VITALS: BMI 48.9
--- OUTSIDE RECORDS SUMMARY | 2024-06-29 14:30 | XMS_ITS | Clinical Summary ---
Author Organization [facility] ity Address [address] [place] [address] Care Team Providers Care Bioengineer Name Role Phone Unavailable Primary Care Provider [...]
--- OUTSIDE RECORDS SUMMARY | 2024-06-29 14:30 | XMS_ITS | Patient Health Record ---
Author Organization [facility] Address [facility] [id number] Support Name Relationship Address Phone Unavailable Emergency Contact Unknown Vida Hatfield Guarantor Unknown Unavailable Reason For Referral No Information Problems Problem Type SNOMED Code ICD Code Onset Dates Problem Status W/U Status Risk Notes Problem Mixed hyperlipidemia (572468211) Mixed hyperlipidemia (272.2) Active confirmed (NISH) Problem Tobacco user (936516783) Nondependent tobacco use disorder (305.1) Active confirmed (NISH) Plan Of Treatment No Information Medical (General) History Surgical History Surgery Date(Month/Year) no surgical history : 10/25/2013 - ;
== END 2024-06-29 13:22 | disposition home or self-care (01) ==
LOC: HO.HOS 12:40
PROVIDERS: PCP Family Medicine; Visit Provider Physician Assistant
DX: M77.32 Calcaneal spur, left foot (principal); S86.012A Strain of left Achilles tendon, initial encounter
CPT/HCPCS: 99213

== ENCOUNTER → 2024-06-29 12:39 | Outpatient (BNVA) | payer OTHER, SELFPAY | PROVIDERS: PCP Family Medicine; Visit Provider Physician Assistant | DX: S86.012D Strain of left Achilles tendon, subsequent encounter (principal); M77.30 Calcaneal spur, unspecified foot | CPT/HCPCS: 99212 ==

== ENCOUNTER 2024-07-05 07:00 | Outpatient (RCR) | payer OTHER, SELFPAY ==
--- NOTE | 2024-06-28 08:40 | MHC.PT.OD ---
[facility] [place] Office [place] Office [place] Office [address] Ana Murillo [address] [phone] F: [phone] F: [phone] F: [phone] F: [phone] Physical Therapy Daily Note Diagnosis: S86. 012A Strain of left achilles tendon, initial encounter: PT eval and treat Partial rupture of left achilles tendon signed by Cielo Barrett, 04/17/23 Updated script requested with additional information being sent over from provider after therapist called to clarify Per paralegal legal secretary verbally, WBAT, gentle ROM and gentle strengthening. Awaiting arrival of updated script Date of Surgery: Date of Evaluation: 05/04/24 Date of Treatment: 06/26/24 Treatments to Date: Cancellations to Date: No Shows to Date: Authorized Visits: 13 Insurance End Date: Precautions/ Contraindications:DOI 03/19/24 small tear of achilles, (+) spur MRI completed, WBAT Subjective: Pt is very sore after trip to [facility], reports has a follow up with orthopedics. Wants to try and go back to work next week. Pain Score and Location: 06/04 Objective Flowsheet: Tests & Measures [address] [place] [address] Office Visit Report Signed Patient: Vida Hatfield LMR#: [id number] : 1980Acct:[id number] Age/Sex: 44 / FADM/SER Date: 05/17/24 Loc: HO.HOSADM/SER Time:1247 Attending Provider: Cielo Barrett PA-C cc: Josias Webber MD~ Intake Visit Reasons: OV - left ankle MRI review Intake Note: Vida is a 44 year old female who presents today for a MRI review of her left ankle. MRI done 04/15/24. Patient states she started PT and has attended 3 sessions. She has concerns of tenderness at her heel. She continues to wear walking boot as instructed. Allergies nickel Allergy (Mild, Verified 05/17/24 13:04) Rash powder on gloves Allergy (Mild, Uncoded 05/17/24 13:04) rash HPI HPI OV - left ankle MRI review: Details: Ms. Jordan is a 44-year-old female who presents to the office today for routine follow-up of a left ankle injury. The patient was called over the phone with the MRI results prior to this appointment. Patient has been attending physical therapy and wearing the boot as instructed. 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 No tenderness to palpation at the Achilles tendon attachment at the calcaneous. Additionally, the osteophyte is also palpable over the posterior aspect of the calcaneus. Achilles tendon is palpable and intact. Negative Watson. Able to dorsiflex and platarflex, pronate and supinate. Sensation intact. Pedal pulse intact. Assessment & Plan Assessment & Plan (1) Partial rupture of left Achilles tendon: Code(s): S86.012A - Strain of left Achilles tendon, initial encounter Category: Medical (2) Calcaneal spur: Code(s): M77.30 - Calcaneal spur, unspecified foot Category: Medical Plan Ms. Jordan is a 44-year-old female who presents to the office today for routine follow-up of a left ankle injury. The patient was called over the phone with the MRI results prior to this appointment. Patient has been attending physical therapy and wearing the boot as instructed. While in the office today, we discussed discontinuing the tall boot and transitioning to a supportive walking shoe. Patient will continue attending physical therapy. She will remain out of work until her follow-up. I would like to see her in 6 weeks, sooner if needed. MRI foot LT wo con IMPRESSION: 1. Findings consistent with a small tear at the insertion of the Achilles tendon. 2. Minimal bone marrow edema involving an os trigonum with surrounding edema/fluid which can be seen in the setting of os trigonum syndrome. 3. Bone marrow edema involving the medial sesamoid of the great toe can be seen in the setting of sesamoiditis or osteoarthritis. Coding Level of Care Code Est Pt Level 3 (31584) Diagnoses Partial rupture of left Achilles tendon S86.012A Calcaneal spur M77.30 Documented By:Cielo Barrett05/17/24 1258 Signed By:<Electronically signed by Cielo Barrett>05/17/24 1405 Exercises Nustep seat #17 x 10 minutes for warm-up post MHP>manual care Standing shoulder extension with GTB x 2 sets 10R, standing shoulder flexion x 2 sets 10R with GTB, standing side-taps with GTB x 2 sets 10R, review of standing air squats x 2 set 10R; standing hip ext kickbacks at side of the stairs with cues for support. Review of seated ankle DF stretch position with goal of trying to increase ROM. Pt able to crouch down and stand with symmetry. Review of standing CKC tasks issued in previous session. Assessment of getting up and down from half-kneel airex pad in effort to increase confidence/assess response. Pt unable to kneel down on R knee with L ankle back but able to complete the opposite way. Pt able to rise with UE support with good tolerance. Education re:: benefit in using RW at this time with transition to shoe from boot as pt presented weight shifted off of L LE with cane, was unstable in support. Pt educated re: gradual transition from boot to sneaker as able. Pt encouraged re: progress to date. Manual STM to distal and proximal calf>achilles tendon in effort to increase tissue extensibility and reduce pain. Cues for increased step length with activity, symmetrical weight-bearing>toe off with symmetrical weight-bearing. Modalities Prone over 1 pillow for continuous US 1.2 boyer 3 MHZ x 8 minutes in effort to increase tissue extensibility. Assessment: 06/26/24: Vida has attended 13 sessions of PT to date. She has weaned from use of CAM boot and is now able to ambulate I of std cane. Last weekend she went to [facility] and reported needing to go back to use of the cane due to pain/tightness from sitting/long drive/stairs of venue they visited. She is able to ascend/descend stairs slowly and reciprocally with good dynamic balance. She is able to mini squat and able to rise up from the ground with UE support. She does require UE support to rise from a half-kneel and had some pain with L achilles when on R knee. We discussed importance of activity modification. She had a trip to [facility] over the weekend which really flared her pain. Overall she is doing better. She states she would liked to try RTW (retail supervisory level states is room for modification) but has some reservations about longer car rides (sometimes has a >1-[address]). She has a low level exercise tolerance , fatigues quickly. She has been given CKC to progress her strength in her hip/core/LE with fair ability. Her ankle ROM has improved but strength progression has been slow. Focus has been on gains in mobility/keeping pain away. She will be seeing [facility] on 06/29/24. Please advise. Thank you for this referral. 06/19/24: Pt reports improving tolerance for CKC continues to have flare-ups/irritation in her achilles. Pt encouraged to keep working on her HEP and CKC tasks at home. 06/14/24: Pt improving tolerance for weight-bearing and CKC tasks. Positive response to standing, weight shift, and mini squat position today. Pt issued written HEP for self care. 06/12/24: Pt doing better overall with respect to walking and stairs climbing. Pt expressing she has goals of RTW week of 06/28. Today we introduced some CKC to prep for RTW demands. Pt very challenged with mini wall squat (for legs/overalll conditioning. Pt expresses concern for being able to drive longer distances, encouraged frequent rest breaks for stretching. 06/05/14: Pt presents to the office expressing flare and increased pain since last week. She reports onset of sx began when having to stand during mammogram and when taking several hour car ride to [place]. She admits to going back to use of the walking boot yesterday. She rated her pain as 7/10 pre activity this date and reported sx reduced to 3/10 post session this date. She benefitted from reinforcement for step through gait vs step to gait with cane. She was encouraged to go back to the walking boot as needed for increased community distances for task such as shopping. 05/29/24; Pt doing better overall with ambulation, presents to the office with std cane (carrying). Pt reports sore over the weekend. Pt challenged with 4 way resisted hip (issued YTB for self care). Cues to modify ROM to comfort level with goal of weight-bearing tolerance. Will work to progress to gentle CKC advancement such as stairs/ ankle theraband next session Pt doing better with respect to symmetry of weight-bearing during ambulation. Pt using std cane. Pt able to ascend/descend stairs post instruction with improved ability/tolerance/confidence. Pt continues to report reduction in sx with use of tape/STM/support. 05/22/24: Pt educated re: pregait/standing weight shift activities in the parallel bars in effort to increase weight-bearing tolerance for L LE (initially presented to office with std cane weight shifted off of L LE). Pt wearing regular shoe. Pt trialed on bike for rocking unable to make full revolution total time 4 minutes (2- two minute increments noted). Pt encouraged to perform HEP frequently more often. Pt with positive response to tape. Pt admits to driving herself to therapy today (first time driving since surgery). 05/18/24: Pt was seen by orthopedics yesterday, was advised to wean to shoe (presents in orthofeet shoe) weight shifted off of L LE, expressing fear of fallings/instability. Pt educated re: use of RW/rollator at this time to promote neutral weight-bearing support and reduce L LE pain with use of shoe. Pt improving in AROM L achilles. Pt ambulating step to gait with RW leaving office (pt educated re: short transition to use of walker with sneaker with goal to improve stance/goals L LE). Pt remains OOW, next ortho follow up is in 6 weeks. 05/10/24:Pt continues to use cane and walking boot as recommended per ortho. Slow and gentle gains in ROM noted. Pt with good tolerance for gentle AAROM gastroc and soleus stretching. Pt with tenderness noted medial aspect of distal achilles insertion. To see orthopedics next week. Pt educated re: impact of mobilizing ankle and plantar fascia/foot intrinsics, impact on achilles. Pt appears adherent to HEP/PT recommendations. 05/07/24: Pt presents with tall walking boot on using std cane, adjusted and elevated cane to correct height for patient. Pt reports reduction in pain since starting PT but does admit to episode of cramping last night in her calf. Introduced gentle seated AAROM DF ROM exercises (educated to refrain from pushing into pain zone). Pt remain OOW (retail, standing, at times pushing using pallet celi/squatting on feet at baseline ) PT Plan: Assess ? RTW with orthopedics on appt on 06/29/24. Short Term Goals: 1. Initiate gentle ROM of the L ankle. 2. Initiate self care strategy for HEP program. 3. Wean from use of walking boot (when cleared by orthopedics). IR:(use of walking boot at all times). 4. Ascend/descend stairs step to I of boot (when cleared to do by orthopedics). IR: (Has been doing stairs sideways, educated re: sequencing with cane and use of walking boot/railing completed in office this date). [facility] Goals: 1. I HEP for self-care. 2. RTW full duty MOD I. 3. Pt will have L ankle ROM >75% ROM compared to R ankle. 4. Strength L ankle 5/5 all planes. 5. Negotiate stairs reciprocally with good dynamic balance. 6. I HEP. Electronically signed by: Nilam Lyman, PT, DPT
== END 2024-09-18 07:18 | disposition home or self-care (01) ==
LOC: HO.PTS 07:00
PROVIDERS: PCP Family Medicine; Visit Provider Physician Assistant
DX: S86.012D Strain of left Achilles tendon, subsequent encounter (principal)
CPT/HCPCS: 97035; 97110; 97116; 97140; 97161

== ENCOUNTER 2024-07-18 08:46 | Outpatient (AMB) | payer OTHER, SELFPAY ==
--- NOTE | 2024-07-18 08:55 | A.OFFVIS_ITS ---
Vital Signs 07/18/24 09:05 Height 5 ft 4 in Weight 285 lb BMI 48.9 Intake Visit Reasons: OV - left ankle pain, DOI 03/20/24 Intake Note: Vida is a 44 year old female who presents today with her tall walking boot for follow up of her left ankle injury, DOI: 03/20/24. At their last visit on 06/29/24 patient was given a letter to return to work on 07/09/24. Patient was also advised to continue PT. Patient states that she felt a sharp pain on the lateral aspect of her ankle that radiated to her calf. She has been wearing her boot which gives her relief and her swelling has gone done. Looks like PT is done. Allergies nickel Allergy (Mild, Verified 07/18/24 08:57) Rash powder on gloves Allergy (Mild, Uncoded 05/17/24 13:04) rash HPI HPI OV - left ankle pain, DOI 03/20/24: Details: Ms. Garcia this is a 44-year-old female who presents to the office today for follow-up of a small tear of the left Achilles tendon at the insertion site that she sustained on 03/20/24. At her last appointment on 06/29/2024 the patient was ambulating without the use of the boot and attending physical therapy. She requested to return to work at that time. She reports that after she returned back to work she felt as though she overdid it and noticed an increase in swelling and pain. On 07/13/24 the patient contacted our office concerned that she is having increased pain and difficulty ambulating. We offered her a follow-up appointment for re-evaluation and instructed the patient to transition back into the boot for support. 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 Mild tenderness to palpation at the Achilles tendon attachment at the calcaneous. Additionally, the osteophyte is also palpable over the posterior aspect of the calcaneus. Achilles tendon is palpable and intact. Negative [place]. Able to dorsiflex and platarflex, pronate and supinate. Sensation intact. Pedal pulse intact. Assessment & Plan Assessment & Plan (1) Partial rupture of left Achilles tendon: Code(s): S86.012A - Strain of left Achilles tendon, initial encounter Category: Medical (2) Calcaneal spur: Code(s): M77.30 - Calcaneal spur, unspecified foot Category: Medical Plan Ms. Garcia this is a 44-year-old female who presents to the office today for follow-up of a small tear of the left Achilles tendon at the insertion site that she sustained on 03/20/24. At her last appointment on 06/29/2024 the patient was ambulating without the use of the boot and attending physical therapy. She requested to return to work at that time. She reports that after she returned back to work she felt as though she overdid it and noticed an increase in swelling and pain. On 07/13/24 the patient contacted our office concerned that she is having increased pain and difficulty ambulating. We offered her a follow-up appointment for re-evaluation and instructed the patient to transition back into the boot for support. While in the office today, we discussed returning back to physical therapy. She will remain in the boot until she can transition back into a normal walking shoe once her pain and edema subsides. She will remain out of work to allow the left foot and ankle to rest and recover. I would like to follow up with her in 4 weeks to check her progress, sooner if needed. I would like Physical therapy to work on the following with her: * Stationary bike with low resistance * Range of motion progress to gentle stretching with the use of a strap or towel * Strengthening / Isometrics * Cryotherapy * Soft tissue/cross fiber massage to the Achilles * Ultrasound, iontophoresis, electrical stimulation to decrease inflammation * Hamstring curls to facilitate the gastroc without flexing the ankle: Prone or standing with light resistance * Do not push through pain * Wean out of the boot in the next 1-2 weeks Coding Level of Care Code Est Pt Level 3 (23318) Diagnoses Partial rupture of left Achilles tendon S86.012A Calcaneal spur M77.30
[2024-07-18 09:05] VITALS: BMI 48.9
--- OUTSIDE RECORDS SUMMARY | 2024-07-18 09:16 | XMS_ITS | Clinical Summary ---
Author Organization [facility] ity Address [address] [place] [address] Care Team Providers Care Cable Operator Name Role Phone Unavailable Primary Care Provider [...] Vaccine (2023-2 5 season) 2023 Influenza Vaccine (Season Ended) 2024 HIB Vaccines Aged Out No longer eligi [...] age to complete this topic Meningococcal B Vaccine Aged Out No l onger eligible based on patient's age to complete [...]
--- OUTSIDE RECORDS SUMMARY | 2024-07-18 09:16 | XMS_ITS | Patient Health Record ---
Author Organization [facility] Address [facility] [phone] Support Name Relationship Address Phone Unavailable Emergency Contact Unknown Vida Hatfield Guarantor Unknown Unavailable Reason For Referral No Information Problems Problem Type SNOMED Code ICD Code Onset Dates Problem Status W/U Status Risk Notes Problem Mixed hyperlipidemia (678519860) Mixed hyperlipidemia (272.2) Active confirmed (NISH) Problem Tobacco user (293066074) Nondependent tobacco use disorder (305.1) Active confirmed (NISH) Plan Of Treatment No Information Medical (General) History Surgical History Surgery Date(Month/Year) no surgical history : 10/25/2013 - ;
== END 2024-07-18 09:36 | disposition home or self-care (01) ==
LOC: HO.HOS 08:47
PROVIDERS: PCP Family Medicine; Visit Provider Physician Assistant
DX: S86.012A Strain of left Achilles tendon, initial encounter (principal); M77.32 Calcaneal spur, left foot
CPT/HCPCS: 99213

== ENCOUNTER → 2024-07-18 08:46 | Outpatient (BNVA) | payer OTHER, SELFPAY | PROVIDERS: PCP Family Medicine; Visit Provider Physician Assistant | DX: S86.012D Strain of left Achilles tendon, subsequent encounter (principal); M77.30 Calcaneal spur, unspecified foot; X58.XXXD Exposure to other specified factors, subsequent encounter | CPT/HCPCS: 99212 ==

== ENCOUNTER 2024-08-16 08:53 | Outpatient (REF) | payer OTHER, SELFPAY ==
--- OUTSIDE RECORDS SUMMARY | 2024-08-16 09:04 | XMS_ITS | Clinical Summary ---
Author Organization [facility] ity Address [address] [place] [address] Care Team Providers Care Automatic Lathe Tender Name Role Phone Unavailable Primary Care Provider [...]
--- OUTSIDE RECORDS SUMMARY | 2024-08-16 09:04 | XMS_ITS | Patient Health Record ---
Author Organization [facility] Address [facility] [phone] Support Name Relationship Address Phone Unavailable Emergency Contact Unknown [phone] Vida Hatfield Guarantor Unknown Unavailable Reason For Referral No Information Problems Problem Type SNOMED Code ICD Code Onset Dates Problem Status W/U Status Risk Notes Problem Mixed hyperlipidemia (787577674) Mixed hyperlipidemia (272.2) Active confirmed (NISH) Problem Tobacco user (628915793) Nondependent tobacco use disorder (305.1) Active confirmed (NISH) Plan Of Treatment No Information Medical (General) History Surgical History Surgery Date(Month/Year) no surgical history : 10/25/2013 - ;
[2024-08-16 11:14] LABS: Appearance Urine Clear; Color Urine Yellow; Glucose Urine UA Negative (Negative); Leukocyte Esterase Urine Negative (Negative); Nitrite Urine Negative (Negative); Specific Gravity - Urine <= 1.005 (1.005-1.025); UMIC TRIGGER UA YES; Urine Blood Small (1+) (Negative); Urine Ketones Negative (Negative); Urine Protein Negative (Neg-Trace)
[2024-08-16 11:23] LABS: Bacteria Urine None Seen (None Seen); Hyaline Casts Urine 0-2 /LPF (0-2); RBC Urine 0-2 /HPF (0-2); Squamous Epithelial Cell Urine 0-2 /HPF (0-2); WBC Urine 0-5 /HPF (0-5)
[2024-08-16 12:32] LABS: Alanine Aminotransferase 33 U/L (0-31); Albumin Level 4.8 g/dL (3.5-5.0); Alkaline Phosphatase 75 U/L (39-117); Anion Gap 13 (12-20); Aspartate Amino Transferase 32 U/L (5-31); Bilirubin Total 0.4 mg/dL (0.0-1.0); Blood Urea Nitrogen 11 mg/dL (9-16); Calcium 9.7 mg/dL (8.4-10.2); Carbon Dioxide 25 mmol/L (22-29); Chloride 107 mmol/L (96-108); Cholesterol 196 mg/dL (<200); Estimated Glomerular Filt Rate > 60; Glucose Fasting 89 mg/dL (60-99); HDL Cholesterol 43 mg/dL (>40); LDL Cholesterol Calculated 124 mg/dL (<100); Potassium 3.9 mmol/L (3.3-5.1); Sodium 141 mmol/L (135-145); Total Protein 7.6 g/dL (6.5-8.0); Triglycerides 146 mg/dL (<150)
== END 2024-08-16 08:54 | disposition home or self-care (01) ==
LOC: HO.WFDLDS 08:53
PROVIDERS: Visit Provider Family Medicine
DX: Z00.00 Encounter for general adult medical examination without abnormal findings (principal); M77.30 Calcaneal spur, unspecified foot; S86.012A Strain of left Achilles tendon, initial encounter; E78.00 Pure hypercholesterolemia, unspecified; R74.01 Elevation of levels of liver transaminase levels
CPT/HCPCS: 36415; 80053; 80061; 81001; 99212

== ENCOUNTER 2024-08-16 10:23 | Outpatient (AMB) | payer OTHER, SELFPAY ==
--- NOTE | 2024-08-16 10:25 | A.OFFVIS_ITS ---
Vital Signs 08/16/24 10:26 Height 5 ft 4 in Weight 284 lb BMI 48.7 Intake Visit Reasons: OV - left ankle pain, DOI 03/20/24 Intake Note: Vida is a 44 year old female who presents today for follow up of her left ankle injury, DOI: 03/20/24. At their last visit she was advised to remain in the boot until she can transition back into a normal walking shoe once her pain and edema subsides. Patient reports she has D.C the boot due to feeling improvement. States she has modified her activities , bought new supportive shoes and continues to do her exercises. States she is doing well over all. 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 We talked about her adjustment in sleeping posture, which appears beneficial in symptom relief. The patient expressed concern about returning to work, particularly due to travel requirements as this causes an increase in pain and stiffness. I advised that this should be approached cautiously and with necessary adjustments to manage symptoms. We confirmed her understanding of the guidance provided, including the benefits and risks, and agreed on continuing with her current routine while monitoring symptoms closely. Return to full-time work will be supported, with strategies in place for symptom management should the need arise. Patient Instructions: - Continue wearing supportive shoes. - Maintain your current exercise routine at home. - Adjust your sleeping posture to avoid stress on the ankle. - Monitor symptoms closely and call if you notice significant changes. - Approach work cautiously and rest as needed. - Follow up if there are challenges managing symptoms when returning to work. Coding Level of Care Code Est Pt Level 3 (70097) Diagnoses Partial rupture of left Achilles tendon S86.012A Calcaneal spur M77.30
[2024-08-16 10:26] VITALS: BMI 48.7
--- OUTSIDE RECORDS SUMMARY | 2024-08-16 10:56 | XMS_ITS | Clinical Summary ---
Author Organization [facility] ity Address [address] [place] [address] Care Team Providers Care Recovery Room Nurse Name Role Phone Unavailable Primary Care Provider [...]
== END 2024-08-16 11:04 | disposition home or self-care (01) ==
LOC: HO.HOS 10:23
PROVIDERS: PCP Family Medicine; Visit Provider Physician Assistant
DX: S86.012A Strain of left Achilles tendon, initial encounter (principal); M77.30 Calcaneal spur, unspecified foot
CPT/HCPCS: 99213

== ENCOUNTER 2024-08-24 16:07 | Outpatient (AMB) | payer OTHER, SELFPAY ==
--- OUTSIDE RECORDS SUMMARY | 2024-08-24 16:09 | XMS_ITS | Patient Health Record ---
Author Organization [facility] Address [facility] [phone] Support Name Relationship Address Phone Unavailable Emergency Contact Unknown Vida Hatfield Guarantor Unknown Unavailable Reason For Referral No Information Problems Problem Type SNOMED Code ICD Code Onset Dates Problem Status W/U Status Risk Notes Problem Mixed hyperlipidemia (552410199) Mixed hyperlipidemia (272.2) Active confirmed (NISH) Problem Tobacco user (670195085) Nondependent tobacco use disorder (305.1) Active confirmed (NISH) Plan Of Treatment No Information Medical (General) History Surgical History Surgery Date(Month/Year) no surgical history : 10/25/2013 - ;
--- NOTE | 2024-08-24 16:13 | MHC.PC.OV ---
Vital Signs 08/24/24 16:16 Height 5 ft 4 in Weight 280 lb 6 oz BMI 48.1 BP 136/72 Blood Pressure Location Rt brachial Position Sitting Respiration 16 Pulse 88 Pulse Source Pulse Oximeter Temp 98.3 F Temp Source Oral Pulse Oximetry (%) 93 Oxygen Delivery Method Room Air Intake Visit Reasons: f/u lipids, liver enzymes Intake Note: patient is scheduled for follow-up for lipids, liver enzymes patient will like atorvastin changed because it's giving her headache that won't go away. Allergies nickel Allergy (Mild, Verified 08/24/24 16:13) Rash powder on gloves Allergy (Mild, Uncoded 08/24/24 16:13) rash Medication List - Last Reconciled 08/24/24 by Josias Webber MD acetaminophen (Tylenol Extra Strength) 1,000 mg PO Q6H PRN albuterol sulfate 90 mcg/actuation 2 puffs inhalation Q6H PRN bupropion HCl XL (Wellbutrin XL) 150 mg PO QAM diclofenac sodium 1% (Voltaren Arthritis Pain) 4 grams topical QID 30 days ibuprofen 800 mg PO TID lactobacillus combination no.8 (Adult Probiotic) 3,000 mmu cells PO DAILY multivitamin 1 tab PO DAILY ondansetron HCl (Zofran) 4 mg PO Q6H PRN 1 month sumatriptan succinate 50 mg PO Q2-4H Tobacco use date assessed: 08/24/24 Dental Screening Dental Screen Date: 08/24/24 Did you have a dental visit in the last 12 months?: Yes Did you have a dental problem in the last 6 months where you did not have access to dental care?: Yes Was dental information given to patient?: No HPI f/u lipids, liver enzymes HPI Details 44 y/o female presents to f/u lipids, liver enzymes. Labs drawn 08/16/24. Reviewed labs with pt. Liver enzymes - AST 32, ALT 33. Triglycerides 146. TC 196. LDL improved from 164 to 124. HDL 43. She notes artovastatin had been giving her headaches. Had stopped this a week before Mother's Day but had been on it awhile. Urine RBC have improved. She notes rosuvastatin had worked better for her family. 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 Cognitive needs: No Hearing needs: No Vision needs: No Questionnaire Thrive Questionnaire Date Thrive assessed: 04/23/24 I am a: Patient What is your living situation today?: I have a steady place to live Within the past 12 months, did the food you bought not last and you didn't have the money to get more?: I choose not to answer this question Within the past 12 months, did you worry whether your food would run out before you got money to buy more?: I choose not to answer this question Do you have trouble paying for medicines?: No Do you have trouble getting transportation to medical appointments?: No Do you have trouble paying your heating and electricity bill?: No Do you have trouble taking care of your child, family member or friend?: No Do you have trouble with day-to-day activities such as bathing, preparing meals, shopping, managing finances, etc.?: No Are you currently unemployed and looking for a job?: No Are you interested in more education?: Yes Please select the resources that you would like help with: Education Currently or been in a relationship where the following occur: I choose not to answer THRIVE Score: 0 NATTY-7 AMB Questionnaire NATTY-7 Date NATTY - 7 assessed: 04/24/24 Source: Developed by Drs. Gavin Hoskins, Beulah Dunn, Umang Mcarthur and colleagues, with an educational tony from [employer]. Review of Systems Const Denies chills, Denies fatigue, Denies fever(s), Denies headache(s) and Denies weakness ENT Denies dizziness and Denies headache(s) Card Denies dyspnea Resp Denies cough, Denies dyspnea, Denies wheezing and Denies other (shortness of breath) Musc Denies numbness and Denies tingling Neuro Denies dizziness, Denies headache(s), Denies numbness, Denies tingling and Denies weakness Psych Denies anxiety and Denies depression Endo Denies fatigue Aller/Immun Denies wheezing Physical exam (Primary Care) Vital Signs: Last Vital Signs Temp 98.3 F 08/24/24 16:16 Pulse 88 08/24/24 16:16 Resp 16 08/24/24 16:16 BP 136/72 08/24/24 16:16 Pulse Ox 93 08/24/24 16:16 Oxygen Delivery Method Room Air 08/24/24 16:16 BMI result Body Mass Index 48.1 Tobacco/Smoking Status: Tobacco use Status Tobacco use date assessed 08/24/24 08/24/24 16:22 Patient Tobacco Use Status Current everyday Tobacco 08/24/24 16:22 Tobacco use type Cigarette 08/24/24 16:22 e-Cigarette/Vaping Use Currently Using 08/24/24 16:22 Thrive Assessment: Date of Thrive Assessment Date Thrive assessed 04/23/24 08/24/24 16:22 Currently or been in a relationship where the following occur: I choose not to answer Const General: well developed; No acute distress Nutritional Appearance: well nourished Orientation/consciousness: patient oriented x3 HENMT Head: Yes normocephalic and Yes atraumatic Eyes General: appearance normal, both eyes and all related structures Pupils: Equal, round and reactive pupils present EOM: EOMs intact bilaterally Resp Effort & Inspection: normal respiratory effort Neuro General: patient oriented x3 and gait normal Cranial nerves: Yes Equal, round and reactive pupils present Psych Affect: normal affect Coding Level of Care Code Est Pt Level 4 (20076) Diagnoses Hypercholesterolemia E78.00 Elevated liver enzymes R74.8 Hematuria R31.9 Assessment & Plan Assessment & Plan (1) Hypercholesterolemia: Code(s): E78.00 - Pure hypercholesterolemia, unspecified Category: Medical Plan: Patient?did?not?tolerate?atorvastatin.??This?was?causing?headaches?which?resolved?when?she?discontinued?it. LDL?cholesterol?decreased?from?160s?down?to?124.??She?had?been?on?atorvastatin?for?most?this?time?however. She?has?been?working?on?lifestyle?changes. Unclear?how?much?of?the?improvement?was?due?to?medication?or?her?lifestyle?changes. She?notes?that?her?mom?also?had?headache?on?atorvastatin?and?was?changed?to?rosuvastatin?with?good?affect?and?she?tolerated?it?well. Will?trial?rosuvastatin Continue?lifestyle?changes (2) Elevated liver enzymes: Code(s): R74.8 - Abnormal levels of other serum enzymes Category: Medical Plan: Ongoing?mildly?elevated?liver?enzymes Likely?fatty?liver?disorder.??Will?liver?ultrasound Encouraged?weight?loss?and?good?hydration (3) Hematuria: Code(s): R31.9 - Hematuria, unspecified Category: Medical Plan: This?has?resolved Orders: Orders Lipid Panel Today E78.00 - Pure hypercholesterolemia, unspecified, Z00.00 - Encounter for general adult medical examination without abnormal findings US abdomen castellanos w elastography Today R74.8 - Abnormal levels of other serum enzymes Comprehensive [place]. Panel Fast Today R74.8 - Abnormal levels of other serum enzymes, Z00.00 - Encounter for general adult medical examination without abnormal findings Medications: New rosuvastatin 10 mg PO DAILY 90 days 90 tabs 3RF
[2024-08-24 16:16] VITALS: BP 136/72; PULSE 88; RESP 16; TEMP 36.8; O2SAT 93; BMI 48.1
== END 2024-08-24 17:06 | disposition home or self-care (01) ==
LOC: HO.HMCFM 16:08
PROVIDERS: PCP Family Medicine; Visit Provider Family Medicine
DX: E78.00 Pure hypercholesterolemia, unspecified (principal); R74.8 Abnormal levels of other serum enzymes; R31.9 Hematuria, unspecified

== ENCOUNTER → 2024-08-24 16:07 | Outpatient (BNVA) | payer OTHER, SELFPAY | PROVIDERS: PCP Family Medicine; Visit Provider Family Medicine | DX: E78.00 Pure hypercholesterolemia, unspecified (principal); R74.8 Abnormal levels of other serum enzymes | CPT/HCPCS: 99212 ==

== ENCOUNTER 2024-10-17 07:41 | Outpatient (REF) | payer OTHER, SELFPAY ==
--- NOTE | ~2024-10-17 | US_ITS ---
EXAMINATION: US ABDOMEN LIMITED WITH LIVER ELASTOGRAPHY HISTORY: R74.8 - Abnormal levels of other serum enzymes TECHNIQUE: Real-time grayscale ultrasound imaging of the right upper quadrant was performed and images were reviewed. COMPARISON: There are no prior studies available for comparison. FINDINGS: Liver: The right lobe of the liver measures 14.7 cm in size. The left lobe of the liver measures 7.7 cm in size. The liver demonstrates increased echotexture, consistent with steatosis. There is a 9 mm cyst in the left lobe which appears septated. No intrahepatic biliary ductal dilatation is identified. There is normal hepatopedal flow in the portal vein. Ultrasound elastography of the liver was performed with 10 separate measurements of the liver parenchyma with the patient in the supine position. Measurements were obtained approximately 2 cm below Dmitri's capsule and perpendicular to the capsule. The median shear wave velocity is 1.49 m/s. The interquartile range/median (IQR/median) is 0.22. Gallbladder and biliary tree: There is ring down artifact from the gallbladder wall, compatible with adenomyomatosis. The gallbladder is otherwise unremarkable, without evidence of calculi, wall thickening, or pericholecystic fluid. There is no sonographic Everett sign. The common bile duct is normal in caliber measuring 5 mm. Right Kidney: The right kidney measures 10.9 cm in length. The right kidney is unremarkable, without evidence of masses, hydronephrosis, or calculi. Pancreas: The pancreatic head, neck, and body are unremarkable. The pancreatic tail is obscured by bowel gas. Abdominal aorta and inferior vena cava: The visualized portions of the abdominal aorta and inferior vena cava are normal in caliber. There is no free fluid in the right upper quadrant. US/US abdomen castellanos w elastography IMPRESSION: 1. Hepatic steatosis. 2. 9 mm septated cyst in the left lobe of the liver. 3. Findings consistent with adenomyomatosis of the gallbladder. The median shear wave velocity in the liver is 1.49 m/s, corresponding to a median liver stiffness of 6.72 kPa. The IQR/median value is 0.22. This is indicative of a poor quality data set, and the estimated liver stiffness may be unreliable. Findings are indicative of a low elastography value which rules out advanced chronic liver disease in asymptomatic patients. REFERENCE: Society of Radiologists in Ultrasound Liver Stiffness Thresholds (2020): LIVER STIFFNESS THRESHOLDS: *Shear wave velocity less than 1.3 m/s (Liver Stiffness equal or less than 5 kPa): High probability of being normal. *Shear wave velocity less than 1.7 m/s (Liver Stiffness less than 9 kPa): In the absence of other known clinical signs, rules out compensated advanced chronic liver disease. *Shear wave velocity between 1.7-2.1 m/s (Liver Stiffness 9-13 kPa): Suggestive of compensated advanced chronic liver disease but need further test for confirmation. *Shear wave velocity between 2.1-2.4 m/s (Liver Stiffness 13-17 kPa): Rules in compensated advanced chronic liver disease. *Shear wave velocity greater than 2.4 m/s (Liver Stiffness over 17 kPa): Suggestive of clinically significant portal hypertension. QUALITY OF DATA SET: *IQR/Median value equal or less than 0.15 implies a quality data set. *IQR/Median value over 0.15 implies a poor quality data set. SIGNIFICANT CHANGE FROM PRIOR EXAM: Significant change if liver stiffness measurement is 10% or greater from prior exam. OTHER CONSIDERATIONS: The stage of liver fibrosis may be overestimated in the setting of acute hepatitis, liver inflammation, elevated liver function tests, hepatic vascular congestion, obstructive cholestasis, non-fasting state, and infiltrative diseases such as amyloidosis and lymphoma. In some patients with NAFLD, the liver stiffness thresholds for compensated advanced chronic liver disease may be lower. In causes other than viral hepatitis and NAFLD, liver stiffness thresholds are not well established. Electronically signed by: Gavin Rowell MD 10/17/2024 08:21 AM EDT
--- OUTSIDE RECORDS SUMMARY | 2024-10-17 07:44 | XMS_ITS | Clinical Summary ---
Author Organization [facility] ity Address [address] [place] [address] Care Team Providers Care Supervisor Evaporator Name Role Phone Unavailable Primary Care Provider [...] Vaccine ( - 2023-2 5 season) 2023 Depression Screening 03/28/2024 Influenza Vaccine (#1) 2024 HIB Vaccines Aged Out No longer [...] 5 Years) and At-Risk Patients (6 to 49 Years) Aged Out No longer eligible b ased on patient's age to complete this topic RSV Immunization Patients Un kayla 20 months Aged Out No longer eligible b ased on patient's age to complete this topic Varicella Vaccines Aged Out No longer eligible based on patient's age to complete this topic
--- OUTSIDE RECORDS SUMMARY | 2024-10-17 07:44 | XMS_ITS | Patient Health Record ---
Author Organization [facility] Address [facility] [phone] Support Name Relationship Address Phone Unavailable Emergency Contact Unknown Vida Hatfield Guarantor Unknown Unavailable Reason For Referral No Information Problems Problem Type SNOMED Code ICD Code Onset Dates Problem Status W/U Status Risk Notes Problem Mixed hyperlipidemia (942567419) Mixed hyperlipidemia (272.2) Active confirmed (NISH) Problem Tobacco user (945102352) Nondependent tobacco use disorder (305.1) Active confirmed (NISH) Plan Of Treatment No Information Medical (General) History Surgical History Surgery Date(Month/Year) no surgical history : 10/25/2013 - ;
== END 2024-10-17 07:42 | disposition home or self-care (01) ==
LOC: HO.US 07:41
PROVIDERS: PCP Family Medicine; Visit Provider Family Medicine
DX: R74.8 Abnormal levels of other serum enzymes (principal)
CPT/HCPCS: 76705; 76981

== ENCOUNTER → 2024-10-17 07:42 | Outpatient (BNV) | payer OTHER, SELFPAY | PROVIDERS: PCP Family Medicine; Visit Provider Radiology Diagnostic Radiology | DX: K76.0 Fatty (change of) liver, not elsewhere classified (principal) | CPT/HCPCS: 76705 ==

== ENCOUNTER 2024-11-17 15:14 | Outpatient (REF) | payer OTHER, SELFPAY ==
--- NOTE | ~2024-11-17 | MR_ITS ---
EXAMINATION: MR ABDOMEN WITHOUT THEN WITH IV CONTRAST HISTORY: K76.89 - Other specified diseases of liver COMPARISON: Correlation is made with an abdominal ultrasound dated 10/17/2024. TECHNIQUE: Axial in and out of phase T1-weighted gradient echo, axial diffusion weighted, and axial and coronal HASTE T2 with fat saturation images were obtained through the abdomen. Subsequently, fat suppressed axial and coronal T1-weighted images were obtained after the intravenous administration of 10 mL Gadavist. FINDINGS: Liver: There is no loss of signal intensity in the liver on opposed phase imaging to suggest steatosis. There is an 8 mm cyst in segment II and an 8 mm cyst in segment VIII. There is no enhancing liver mass. The hepatic and portal veins are patent. There is no intrahepatic biliary dilatation. Gallbladder/biliary tree: No gallstones are identified. The common bile duct is normal in caliber. No intraluminal filling defects are identified to suggest choledocholithiasis. Spleen: The spleen is unremarkable. Pancreas: The pancreas is unremarkable. There is no enhancing pancreatic mass. The pancreatic duct is normal in caliber. Adrenals: The adrenal glands are unremarkable. Kidneys: The kidneys are unremarkable. There is no hydronephrosis. Lymph nodes: There is no retroperitoneal lymphadenopathy in the upper abdomen. Fluid: There is no ascites in the upper abdomen. Visualized bowel: The visualized small and large bowel loops are unremarkable in appearance. Visualized bones: The visualized bones demonstrate normal marrow signal intensity. MR/MR abdomen wo/w con IMPRESSION: Subcentimeter hepatic cysts as described. Otherwise unremarkable MRI of the abdomen without and with contrast. Electronically signed by: Gavin Rowell MD 11/19/2024 07:51 AM EDT
--- OUTSIDE RECORDS SUMMARY | 2024-11-17 15:16 | XMS_ITS | Clinical Summary ---
Author Organization [facility] ity Address [address] [place] [address] Care Team Providers Care Anodic Treater Name Role Phone Unavailable Primary Care Provider [...]
--- OUTSIDE RECORDS SUMMARY | 2024-11-17 15:16 | XMS_ITS | Patient Health Record ---
Author Organization [facility] Address [facility] [phone] Support Name Relationship Address Phone Unavailable Emergency Contact Unknown Vida Hatfield Guarantor Unknown Unavailable Reason For Referral No Information Social History Social History Sexual History: Social Info Question Answer Notes Sexual History Had sex in the past 12 months (vaginal, oral, or anal)? Yes with Women only Use protection? No Have you ever had a Sexually transmitted disease ? No Problems Problem Type SNOMED Code ICD Code Onset Dates Problem Status W/U Status Risk Notes Problem Mixed hyperlipidemia (226784818) Mixed hyperlipidemia (272.2) Active confirmed (NISH) Problem Nondependent tobacco use disorder (305.1) Active confirmed (NISH) Plan Of Treatment No Information Medical (General) History Surgical History Surgery Date(Month/Year) no surgical history : 10/25/2013 - ;
== END 2024-11-17 15:15 | disposition home or self-care (01) ==
LOC: HO.MRI 15:14
PROVIDERS: PCP Family Medicine; Visit Provider Family Medicine
DX: K76.89 Other specified diseases of liver (principal); R74.8 Abnormal levels of other serum enzymes
CPT/HCPCS: 74183; A9585

== ENCOUNTER → 2024-11-17 15:34 | Outpatient (BNV) | payer OTHER, SELFPAY | PROVIDERS: PCP Family Medicine; Visit Provider Radiology Diagnostic Radiology | DX: K76.89 Other specified diseases of liver (principal) | CPT/HCPCS: 74183 ==

== ENCOUNTER 2025-01-22 06:07 | Outpatient (REF) | payer OTHER, SELFPAY ==
--- OUTSIDE RECORDS SUMMARY | 2025-01-22 06:10 | XMS_ITS | Patient Health Record ---
Author Organization [facility] Address [facility] [phone] Support Name Relationship Address Phone Unavailable Emergency [...] W/U Status Risk Notes Problem Mixed hyperlipidemia (938810563) Mixed hyperlipidemia (272.2) Active confirmed (NISH) Problem Tobacco user (274132120) Nondependent tobacco use disorder (305.1) Active confirmed (NISH) Plan Of Treatment No Information Medical (General) History Surgical History Surgery Date(Month/Year) no surgical history : 10/25/2013 - ;
--- OUTSIDE RECORDS SUMMARY | 2025-01-22 06:10 | XMS_ITS | Clinical Summary ---
Author Organization [facility] ity Address [address] [place] [address] Care Team Providers Care Awning Frame Maker Name Role Phone Unavailable Primary Care Provider [...] Cervical Cancer Screening: P ap Smear 01/15/2000 Depression Screening 03/28/2024 COVID-19 Vaccine ( - 2023-2 5 season) 2024 Influenza Vaccine (#1) 2024 RSV Immunization Adult Patie nts (1 - 1-dose 75+ series) 2054 HIB Vaccines Aged Out No longer eligi [...]
[2025-01-22 10:01] LABS: Appearance Urine Clear; Glucose Urine UA Negative (Negative); PH 6.5 (5.0-9.0); Specific Gravity - Urine 1.010 (1.005-1.025); UMIC TRIGGER UA YES
[2025-01-22 10:34] LABS: Albumin Level 4.5 g/dL (3.5-5.0); Alkaline Phosphatase 73 U/L (39-117); Anion Gap 11 (12-20); Aspartate Amino Transferase 36 U/L (5-31); Blood Urea Nitrogen 11 mg/dL (9-16); Calcium 9.2 mg/dL (8.4-10.2); Carbon Dioxide 26 mmol/L (22-29); Chloride 107 mmol/L (96-108); Cholesterol 236 mg/dL (<200); Estimated Glomerular Filt Rate > 60; HDL Cholesterol 38 mg/dL (>40); Potassium 4.2 mmol/L (3.3-5.1); Sodium 140 mmol/L (135-145); Total Protein 7.0 g/dL (6.5-8.0); Triglycerides 152 mg/dL (<150)
[2025-01-22 10:57] LABS: Alanine Aminotransferase 32 U/L (0-31)
== END 2025-01-22 06:08 | disposition home or self-care (01) ==
LOC: HO.HMGCLDS 06:07
PROVIDERS: PCP Family Medicine; Visit Provider Family Medicine
DX: Z00.00 Encounter for general adult medical examination without abnormal findings (principal); E78.00 Pure hypercholesterolemia, unspecified; R74.8 Abnormal levels of other serum enzymes
CPT/HCPCS: 36415; 80053; 80061; 81001

== ENCOUNTER 2025-01-28 14:14 | Outpatient (REF) | payer OTHER, SELFPAY ==
--- OUTSIDE RECORDS SUMMARY | 2025-01-28 16:24 | XMS_ITS | Patient Health Record ---
Author Organization [facility] Center Address [facility] [id number] Support Name Relationship Address Phone Unavailable Emergency [...] W/U Status Risk Notes Problem Mixed hyperlipidemia (042920527) Mixed hyperlipidemia (272.2) Active confirmed (NISH) Problem Tobacco user ([id number]) Nondependent tobacco use disorder (305.1) Active confirmed (NISH) Plan Of Treatment No Information Medical (General) History Surgical History Surgery Date(Month/Year) no surgical history : 10/25/2013 - ;
--- OUTSIDE RECORDS SUMMARY | 2025-01-28 16:24 | XMS_ITS | Clinical Summary ---
Author Organization [facility] ity Address [address] [place] [address] Care Team Providers Care Commercial Loan Collection Officer Name Role Phone Unavailable Primary Care Provider [...]
[2025-01-28 18:29] LABS: Appearance Urine Clear; Glucose Urine UA Negative (Negative); PH 5.0 (5.0-9.0); Specific Gravity - Urine 1.025 (1.005-1.025); UMIC TRIGGER UACC YES
== END 2025-01-28 14:15 | disposition home or self-care (01) ==
LOC: HO.LAB 14:14
PROVIDERS: PCP Family Medicine; Visit Provider Family Medicine
DX: Z00.00 Encounter for general adult medical examination without abnormal findings (principal); R30.0 Dysuria; R74.8 Abnormal levels of other serum enzymes; E78.5 Hyperlipidemia, unspecified; E78.00 Pure hypercholesterolemia, unspecified; K76.89 Other specified diseases of liver; R35.0 Frequency of micturition; H92.02 Otalgia, left ear
CPT/HCPCS: 81001; 87086; 99212

== ENCOUNTER 2025-01-28 14:14 | Outpatient (AMB) | payer OTHER, SELFPAY ==
--- NOTE | 2025-01-28 14:37 | A.OFFPC_ITS ---
Vital Signs 01/28/25 14:49 Height 5 ft 4 in Weight 234 lb BMI 40.2 BP 128/70 Blood Pressure Location Lt brachial Position Sitting Respiration 18 Pulse 85 Pulse Source Pulse Oximeter Temp 98.2 F Temp Source Oral Pulse Oximetry (%) 98 Oxygen Delivery Method Room Air Intake Visit Reasons: 3/4m F/U Reschedule from 12/03 Intake Note: patient is scheduled for lab review and liver ultrasound Entertainment Musician Required: No Allergies nickel Allergy (Mild, Verified 01/28/25 14:47) Rash powder on gloves Allergy (Mild, Uncoded 08/24/24 16:13) rash Tobacco use date assessed: 08/24/24 Dental Screening Dental Screen Date: 08/24/24 HPI 3/4m F/U Reschedule from 12/03 HPI Details 45 y/o female presents to f/u HLD, liver enzymes. Had ordered ultrasound of liver. Labs drawn 01/22/25. Reviewed labs with pt. Ongoing elevated liver enzymes - AST 36, ALT 32. Triglycerides 152. TC 236. LDL 168. HDL 38. She has not been taking her medications. Reports frequent urination, dysuria. Ultrasound showed a liver cyst and follow-up MRI showed to 8 mm liver cysts Likely benign HPI Comments History of Present Illness Details Documentation assistance for Josias Webber MD, was provided by Marlon Malloy, Operations Asst on 01/28/2025 at 3:14 PM EST. I, Dr. Webber, have read, observed, and verified documentation. 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 Cognitive needs: No Hearing needs: No Vision needs: No Questionnaire Thrive Questionnaire Date Thrive assessed: 04/23/24 I am a: Patient What is your living situation today?: I have a steady place to live Within the past 12 months, did the food you bought not last and you didn't have the money to get more?: I choose not to answer this question Within the past 12 months, did you worry whether your food would run out before you got money to buy more?: I choose not to answer this question Do you have trouble paying for medicines?: No Do you have trouble getting transportation to medical appointments?: No Do you have trouble paying your heating and electricity bill?: No Do you have trouble taking care of your child, family member or friend?: No Do you have trouble with day-to-day activities such as bathing, preparing meals, shopping, managing finances, etc.?: No Are you currently unemployed and looking for a job?: No Are you interested in more education?: Yes Please select the resources that you would like help with: Education Currently or been in a relationship where the following occur: I choose not to answer THRIVE Score: 0 NATTY-7 AMB Questionnaire NATTY-7 Date NATTY - 7 assessed: 04/24/24 Source: Developed by Drs. Gavin Hoskins, Beulah Dunn, Umang Mcarthur and colleagues, with an educational tony from [employer]. Review of Systems Const Denies chills, Denies fatigue, Denies fever(s), Denies headache(s) and Denies weakness ENT Denies dizziness and Denies headache(s) Card Denies dyspnea Resp Denies cough, Denies dyspnea, Denies wheezing and Denies other (shortness of breath) Musc Denies numbness and Denies tingling Neuro Denies dizziness, Denies headache(s), Denies numbness, Denies tingling and Denies weakness Psych Denies anxiety and Denies depression Endo Denies fatigue Aller/Immun Denies wheezing Physical exam (Primary Care) Tobacco/Smoking Status: Tobacco use Status Tobacco use date assessed 08/24/24 01/28/25 14:38 Patient Tobacco Use Status Current everyday Tobacco 01/28/25 14:38 Tobacco use type Cigarette 01/28/25 14:38 e-Cigarette/Vaping Use Currently Using 01/28/25 14:38 Thrive Assessment: Date of Thrive Assessment Date Thrive assessed 04/23/24 01/28/25 14:38 Currently or been in a relationship where the following occur: I choose not to answer Const General: well developed; No acute distress Nutritional Appearance: well nourished Orientation/consciousness: patient oriented x3 HENMT Head: Yes normocephalic and Yes atraumatic Eyes General: appearance normal, both eyes and all related structures Pupils: Equal, round and reactive pupils present EOM: EOMs intact bilaterally Resp Effort & Inspection: normal respiratory effort Neuro General: patient oriented x3 and gait normal Cranial nerves: Yes Equal, round and reactive pupils present Psych Affect: normal affect Coding Level of Care Code Est Pt Level 4 (97330) Diagnoses Hypercholesterolemia E78.00 Elevated liver enzymes R74.8 Liver cyst K76.89 Dysuria R30.0 Urinary frequency R35.0 Discomfort of left ear H92.02 Assessment & Plan Assessment & Plan (1) Hypercholesterolemia: Code(s): E78.00 - Pure hypercholesterolemia, unspecified Category: Medical Plan: LDL cholesterol is still too high. Patient notes that she has not been taking her medication. She wants to restart the medication and I will send a script We can recheck this in a few months (2) Elevated liver enzymes: Code(s): R74.8 - Abnormal levels of other serum enzymes Category: Medical Plan: Liver enzymes elevated and ultrasound shows hepatic steatosis. Elastography rules out advanced chronic liver disease Encouraged diet and weight loss Ultrasound also showed liver cyst-see below (3) Liver cyst: Code(s): K76.89 - Other specified diseases of liver Category: Medical Plan: Ultrasound showed a liver cyst and follow-up MRI showed to 8 mm liver cysts Likely benign We can recheck an ultrasound in 6 months (4) Dysuria: Code(s): R30.0 - Dysuria Category: Medical Plan: Patient notes dysuria and urinary frequency. Ambulatory urinalysis in the office today shows blood Possible UTI versus renal stone. Will send script for Macrobid Sending urine out for urinalysis and culture Will call patient if further action is required Encouraged good hydration (5) Urinary frequency: Code(s): R35.0 - Frequency of micturition Category: Medical Plan: As above (6) Discomfort of left ear: Code(s): H92.02 - Otalgia, left ear Category: Medical Plan Recent urgent care visit for bilateral otitis media. She notes that she still gets some pressure at left ear. She is a smoker and has a history of allergies Likely still getting intermittent serous otitis She plans to quit smoking She will continue using nasal saline and she can try some nasal steroid as well. Orders: Orders AMB Urinalysis Automated Today Z13.9 - Encounter for screening, unspecified UA CC w/rflx Micro + Cult Today R30.0 - Dysuria, Z00.00 - Encounter for general adult medical examination without abnormal findings Urine Culture Today R30.0 - Dysuria Comprehensive [place]. Panel Fast Today R74.8 - Abnormal levels of other serum enzymes, Z00.00 - Encounter for general adult medical examination without abnormal findings Lipid Panel Today E78.00 - Pure hypercholesterolemia, unspecified, Z00.00 - Encounter for general adult medical examination without abnormal findings Medications: New nitrofurantoin monohyd/m-cryst 100 mg (Macrobid) must administer with a meal/food 100 mg PO BID 14 caps 0RF 7 days Refilled rosuvastatin 10 mg PO DAILY 90 tabs 3RF 90 days
[2025-01-28 14:49] VITALS: BP 128/70; PULSE 85; RESP 18; TEMP 36.8; O2SAT 98; BMI 40.2
== END 2025-01-28 15:16 | disposition home or self-care (01) ==
LOC: HO.HMCFM 14:15
PROVIDERS: PCP Family Medicine; Visit Provider Family Medicine
DX: E78.00 Pure hypercholesterolemia, unspecified (principal); R74.8 Abnormal levels of other serum enzymes; K76.89 Other specified diseases of liver; R30.0 Dysuria; R35.0 Frequency of micturition; H92.02 Otalgia, left ear

== ENCOUNTER 2025-01-30 12:53 | Outpatient (REF) | payer OTHER, SELFPAY | END 2025-01-30 12:54 | disposition home or self-care (01) | LOC: HO.LAB 12:53 | PROVIDERS: PCP Family Medicine; Visit Provider Advanced Practice Midwife | DX: N95.1 Menopausal and female climacteric states (principal); N93.9 Abnormal uterine and vaginal bleeding, unspecified; Z12.4 Encounter for screening for malignant neoplasm of cervix | CPT/HCPCS: 99386 ==

== ENCOUNTER 2025-01-30 12:53 | Outpatient (AMB) | payer OTHER, SELFPAY ==
--- NOTE | 2025-01-30 13:00 | A.OFFVIS_ITS ---
Vital Signs 01/30/25 13:10 Height 5 ft 4 in Weight 234 lb BMI 40.2 BP 122/76 Intake Visit Reasons: New patient annual Intake Note: Last pap smear 10+ Years ago. Normal hx. Manager House: Manager House Present (Vida) Accompanied by: Self / Same As Patient Allergies nickel Allergy (Mild, Verified 01/30/25 13:10) Rash powder on gloves Allergy (Mild, Uncoded 08/24/24 16:13) rash Medication List - Last Reconciled 01/30/25 by Laura Car CNM acetaminophen (Tylenol Extra Strength) 1,000 mg PO Q6H PRN diclofenac sodium 1% (Voltaren Arthritis Pain) 4 grams topical QID 30 days ibuprofen 800 mg PO TID multivitamin 1 tab PO DAILY nitrofurantoin monohyd/m-cryst 100 mg (Macrobid) 100 mg PO BID 7 days rosuvastatin 10 mg PO DAILY 90 days sumatriptan succinate 50 mg PO Q2-4H tirzepatide (weight loss) (Zepbound) mg subcut Is last menstrual period known: Yes Last menstrual period: 01/25/25 Post menopausal: No Patient : No PFSH Medical History (Updated 01/30/25 @ 14:00 by Laura Car CNM) Glaucoma associated with ocular disorder, indeterminate stage Surgical History (Updated 01/30/25 @ 13:05 by Vida Cano MA) S/P LASIK surgery of both eyes Social History Housing: House Patient Tobacco Use Status: Current everyday Tobacco user Tobacco use type: Cigarette Cigarettes Per Day: 10 e-Cigarette/Vaping Use: Currently Using Second Hand Smoke Exposure: Yes service: No Current occupational status: employed 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 Cognitive needs: No Hearing needs: No Vision needs: No Female Reproductive History Menstrual Age of Menarche: 8 Duration of menses: 3-5 days Date of last menstrual period: 01/25/25 control method: none Total pregnancies: 5 Full term: 1 History of abnormal pap smear: No Date of Mammogram: 06/01/24 (bi rad 1) Physical Exam Vital Signs: Last Vital Signs BP 122/76 01/30/25 13:10 BMI result Body Mass Index 40.2 Const General: healthy appearing, comfortable, no acute distress, well developed and alert Nutritional Appearance: average body habitus and obese Orientation/consciousness: patient oriented x3 Limitations: no limitations HEENT Head: Yes normocephalic Neck Neck: Yes normal visual inspection Chest Chest palpation & inspection: normal inspection of the chest Breast/axilla inspection: normal inspection of the breasts and normal inspection of the axillae Breast/axilla palpation: normal palpation of the breasts and normal palpation of the axillae Resp Effort & Inspection: normal respiratory effort GI Inspection: Yes normal to inspection, No Abdominal wall edema and No distended Palpation (GI): Soft to palpation and nontender Other: External exam within normal limits vagina is pink and moist with very light menses cervix pink and smooth. Cervix is long close thick mobile nontender uterus midposition mobile nontender adnexa nontender no enlargement of any organ palpable good tone with Kegel. General: Yes bladder normal to palpation External Female Exam: normal external appearance and normal appearance of the urethra Speculum Exam - Vagina: normal appearance of the vagina, normal palpation and normal vaginal discharge Speculum Exam - Cervix: normal appearance of the cervix, normal palpation and nontender Bimanual exam- vagina & uterus: normal bimanual exam, normal palpation, uterine size normal, bladder normal to palpation, consistency normal, normal palpation, uterine mobility normal, uterine shape normal, No Cervical tenderness present, non-tender and no cervical motion tenderness Bimanual Exam- Adnexa, other: normal adnexae, no masses, normal and No adnexal tenderness Neuro General: patient oriented x3 Assessment & Plan Assessment & Plan (1) Screening for cervical cancer: Code(s): Z12.4 - Encounter for screening for malignant neoplasm of cervix Category: Medical (2) Perimenopause: Code(s): N95.1 - Menopausal and female climacteric states Category: Medical (3) Abnormal uterine bleeding (AUB): Comment: Patient cites irregular periods for years has had IUDs and P OCPs in past, no Rx since 2019... We will have Pelvic ultrasound and probable EMB after that Code(s): N93.9 - Abnormal uterine and vaginal bleeding, unspecified Category: Medical Plan -----Discussed in this visit the following: healthy balanced diet, regular and consistent exercise, getting recommended health screens, doing the best she can for her particular health concerns, kegel exercises, pap smear screening and followup recommendations, mammography screening and SBE, normal changes in cycles in her life stage--- . Discussed her irregular bleeding pattern which is been going on for sometime she has had various control pills and NuvaRing and progestin only pills and Mirena IUDs which worked well until they did not and either fell out in the case of the 1st 1 and the 2nd 1 became dislodged in her cervix and was very painful to get removed. She has not been using any control since if she did get she would abort.. She is up to getting what ever testing needed to figure this out. She knows that she is premenopausal at this stage. 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 She just started light bleeding which maybe her light menses in the last couple of days. She is open to testing for her STIs. She is going to be starting on a new medication for her high cholesterol and she is working on improving the health of her liver and is working on the weight loss as part of that, Pap smear and testing for STIs done with the exam. Recommend and I have ordered a pelvic ultrasound. After that is done we are going to plan on a visit to go over the results and plan on doing an endometrial biopsy at that visit. I strongly recommend avoiding unsafe sex until she is on a more reliable method of control. But for now no prescription will be provided until we evaluate the bleeding. Coding Level of Care Code New Pt Prev Care 40-64y(30588) Diagnoses Screening for cervical cancer Z12.4 Perimenopause N95.1 Abnormal uterine bleeding (AUB) N93.9
[2025-01-30 13:10] VITALS: BP 122/76; BMI 40.2
--- OUTSIDE RECORDS SUMMARY | 2025-01-30 15:34 | XMS_ITS | Clinical Summary ---
Author Organization [facility] ity Address [address] [place] [address] Care Team Providers Care Information Services Vice President Name Role Phone Unavailable Primary Care Provider [...]
== END 2025-01-30 14:28 | disposition home or self-care (01) ==
LOC: HO.HWSM 12:53
PROVIDERS: PCP Family Medicine; Visit Provider Advanced Practice Midwife
DX: Z01.419 Encounter for gynecological examination (general) (routine) without abnormal findings (principal); N95.1 Menopausal and female climacteric states; N93.9 Abnormal uterine and vaginal bleeding, unspecified
CPT/HCPCS: 99386; 99459

== ENCOUNTER 2025-01-30 14:48 | Outpatient (REF) | payer OTHER, SELFPAY ==
[2025-01-31 13:41] LABS: Bacterial Vaginosis PCR NEGATIVE (Negative); Candida Group PCR NOT DETECTED (Not Detect); Candida glab krusei PCR DETECTED (Not Detect); Trichomonas vaginalis PCR NOT DETECTED (Not Detect)
[2025-01-31 14:33] LABS: CT PCR NOT DETECTED (Not Detect.); NG PCR NOT DETECTED (Not Detect.)
== END 2025-01-30 14:49 | disposition home or self-care (01) ==
LOC: HO.LNP 14:48
PROVIDERS: Visit Provider Advanced Practice Midwife
DX: Z12.4 Encounter for screening for malignant neoplasm of cervix (principal); N93.9 Abnormal uterine and vaginal bleeding, unspecified; Z20.2 Contact with and (suspected) exposure to infections with a predominantly sexual mode of transmission
CPT/HCPCS: 81515; 87491; 87591; 87626; 88175